=== PATIENT | female | born 1985 ===

== ENCOUNTER 2017-02-26 12:34 | Emergency (ER) | payer OTHER ==
[2017-02-26 12:40] VITALS: RESP 18; TEMP 99.1
[2017-02-26] MEDS ORDERED: DIAZEPAM 5 MG TAB PO STA (13:09)
[2017-02-26] MEDS ORDERED: KETOROLAC 60 MG/2 ML VIAL IM STA (13:09)
--- NOTE | 2017-02-26 13:12 | ED ---
General Adult HPI - General Chief complaint: Back Pain/Injury Stated complaint: Back Pain Time Seen by Provider: 02/26/17 12:59 Source: patient, RN notes reviewed Mode of arrival: ambulatory Limitations: no limitations - History of Present Illness Initial comments: Patient 31-year-old female who presents emergency room today with a chief complaint of increased lower back pain over the last 2 days. She admits that she was sitting a chair 2 days ago when she went to stand up quickly and felt increased pain in the lower back. Does admit that she does have some radiation into both the left and right leg. States worse on the right than the left. Denies any bowel or bladder incontinence retention. Denies any saddle anesthesia. She does admit that the pain is worse with certain movements. She states she has been taking ibuprofen with little relief of the symptoms. Patient denies any other complaints or associated symptoms. Patient denies any recent fever, chills, shortness of breath, chest pain, abdominal pain, nausea or vomiting, dysuria or hematuria, constipation or diarrhea, headaches or visual changes, or any other complaints. - Related Data Home Medications Medication Instructions Recorded Confirmed Albuterol Inhaler [Ventolin Hfa 1 - 2 puff INHALATION RT-Q6H PRN 02/26/17 Inhaler] Ferrous Sulfate [Feosol] 325 mg PO DAILY 02/26/17 02/26/17 Ibuprofen [Motrin] 200 mg PO Q6HR PRN 02/26/17 02/26/17 Previous Rx's Medication Instructions Recorded Cyclobenzaprine [Flexeril] 10 mg PO TID #20 tab 02/26/17 Ibuprofen [Motrin] 800 mg PO Q6HR #30 tab 02/26/17 Allergies Allergy/AdvReac Type Severity Reaction Status Date / Time aspirin Allergy Anaphylaxis Verified 02/26/17 13:32 Fish Containing Products Allergy Anaphylaxis Verified 02/26/17 13:32 [Fish] Penicillins Allergy Anaphylaxis Verified 02/26/17 13:32 shellfish derived [Shellfish] Allergy Anaphylaxis Verified 02/26/17 13:32 shrimp Allergy Anaphylaxis Verified 02/26/17 13:32 soy Allergy Anaphylaxis Verified 02/26/17 13:32 Review of Systems ROS Statement: Those systems with pertinent positive or pertinent negative responses have been documented in the HPI. ROS Other: All systems not noted in ROS Statement are negative. Past Medical History Past Medical History: Asthma History of Any Multi-Drug Resistant Organisms: None Reported Past Surgical History: Tonsillectomy Past Psychological History: Anxiety Past Alcohol Use History: Occasional Past Drug Use History: None Reported General Exam - General Exam Comments Initial Comments: General: The patient is awake and alert, in no distress, and does not appear acutely ill. Eye: Pupils are equal, round and reactive to light, extra-ocular movements are intact. No nystagmus. There is normal conjunctiva bilaterally. No signs of icterus. Ears, nose, mouth and throat: There are moist mucous membranes and no oral lesions. Neck: The neck is supple, there is no tenderness or JVD. Cardiovascular: There is a regular rate and rhythm. No murmur, rub or gallop is appreciated. Respiratory: Lungs are clear to auscultation, respirations are non-labored, breath sounds are equal. No wheezes, stridor, rales, or rhonchi. Gastrointestinal: Soft, non-distended, non-tender abdomen without masses or organomegaly noted. There is no rebound or guarding present. No CVA tenderness. Bowel sounds are unremarkable. Musculoskeletal: Patient has normal appearance of cervical, thoracic, lumbar spine. No step-offs forms appreciated. Patient does have diffuse tenderness beginning at L1 down through S1 of the lower back. Increased paravertebral tenderness both left and right sides. Sensations intact pulses equal bilaterally 2+. Patient shows full range of motion both upper and lower extremities. Sensations intact. Neurological: A&O x 3. CN II-XII intact, There are no obvious motor or sensory deficits. Coordination appears grossly intact. Speech is normal. Skin: Skin is warm and dry and no rashes or lesions are noted. Psychiatric: Cooperative, appropriate mood & affect, normal judgment. Limitations: no limitations Course Vital Signs 02/26/17 12:37 Temperature 99.1 F Pulse Rate 78 Respiratory 18 Rate Blood Pressure 129/70 O2 Sat by Pulse 100 Oximetry Medical Decision Making - Medical Decision Making Patient reexamined at this time shows no signs of distress. Does admit feeling better after Valium and ibuprofen here in the emergency room. Patient's x-ray reviewed and shows no acute abnormality other than some straightening spine with consistency to muscle spasm. Patient will be discharged home and continued on muscle relaxer and anti-inflammatories. Advised to follow-up family doctor over the next 2 days. Advised return here to emergency room if any symptoms increase or worsen or for any other concerns. Patient family wear at bedside state understanding and are in agreement. Disposition Clinical Impression: Acute low back pain Disposition: HOME SELF-CARE Condition: Good Instructions: Acute Low Back Pain (ED) Additional Instructions: Please use medication as discussed. Please follow-up with family doctor in the next 2 days of symptoms have not improved. Please return to emergency room if the symptoms increase or worsen or for any other concerns. Prescriptions: Cyclobenzaprine [Flexeril] 10 mg PO TID #20 tab Ibuprofen [Motrin] 800 mg PO Q6HR #30 tab Referrals: Alec Beatty MD [Primary Care Provider] - 1-2 days Time of Disposition: 14:36
--- NOTE | 2017-02-26 14:11 | XR ---
EXAMINATION TYPE: XR lumbar spine 2 or 3V DATE OF EXAM: 02/26/2017 CLINICAL HISTORY: Low back pain TECHNIQUE: Frontal and lateral images of the lumbar spine are obtained. COMPARISON: None FINDINGS: There are 5 lumbar type vertebral bodies identified. The lumbar spine shows straightening alignment without evidence of acute fracture or dislocation. Vertebral body heights and disk space h eights are within normal limits. No significant spurring is seen. The overlying soft tissue appears unremarkable. IMPRESSION: Straightening of lumbar spine otherwise unremarkable study.
[2017-02-26 14:46] VITALS: BP 103/52; PULSE 81
== END 2017-02-26 14:52 | disposition home or self-care (01) ==
LOC: EC 12:34
DX: M54.5 Low back pain (principal); M79.604 Pain in right leg; M79.605 Pain in left leg; M48.8X6 Other specified spondylopathies, lumbar region; Z79.899 Other long term (current) drug therapy; Z88.0 Allergy status to penicillin; Z88.6 Allergy status to analgesic agent; Z91.013 Allergy to seafood; Z91.018 Allergy to other foods
CPT/HCPCS: 72100; 99283; 96372; J1885

== ENCOUNTER 2017-08-10 16:25 | Emergency (ER) | payer OTHER ==
[2017-08-10 16:59] VITALS: RESP 18
--- NOTE | 2017-08-10 19:50 | ED ---
General Adult HPI - General Chief complaint: Headache Stated complaint: Abd Pain/Headache Time Seen by Provider: 08/10/17 19:34 Source: patient Mode of arrival: ambulatory Limitations: no limitations - History of Present Illness Initial comments: 32-year-old female patient presents to the emergency department today for multiple complaints. States that for the last 2 days she has had generalized body aches, headache, fatigue, and abdominal pain. She states that the pain is located in her upper abdomen and feels like intense pressure type pain. She states that she has had a dry mouth and has been more thirsty than usual. States that she has had also some substernal chest pain intermittently with this. She states that she does have sweats at night. She denies any nausea or vomiting. States that she has had some diarrhea as well over the last 2 days, 5 episodes yesterday and 2 episodes today. She denies any hematochezia or melena. Patient reports that her period finished 2 days ago, states that it lasted for 1-1/2 months. States that she does have a nexplanon implant and does have heavy periods. She denies any fever or chills. States she has had a mild cough and nasal congestion however denies any sore throat or ear pain. Denies any sputum production with her cough. Patient denies any recent rash, shortness breath, chest pain, back pain, numbness, tingling, dizziness, hematuria, dysuria, urinary urgency, urinary frequency, visual changes, or any other complaints. - Related Data Home Medications Medication Instructions Recorded Confirmed Albuterol Inhaler [Ventolin Hfa 1 - 2 puff INHALATION RT-Q6H PRN 02/26/17 Inhaler] Acetaminophen-Codeine 300-30mg 0.5 - 1 tab PO BID PRN 08/10/17 08/10/17 [Tylenol #3] Amantadine HCl [Symmetrel] 100 mg PO BID 08/10/17 08/10/17 Azithromycin [Zithromax Z-pack] See Taper PO DIRECTED 08/10/17 08/10/17 Ibuprofen [Motrin] 800 mg PO TID PRN 08/10/17 08/10/17 Allergies Allergy/AdvReac Type Severity Reaction Status Date / Time aspirin Allergy Anaphylaxis Verified 08/10/17 19:20 Fish Containing Products Allergy Anaphylaxis Verified 08/10/17 19:20 [Fish] iodine Allergy Anaphylaxis Verified 08/10/17 19:20 Penicillins Allergy Anaphylaxis Verified 08/10/17 19:20 shellfish derived [Shellfish] Allergy Anaphylaxis Verified 08/10/17 19:20 shrimp Allergy Anaphylaxis Verified 08/10/17 19:20 soy Allergy Anaphylaxis Verified 08/10/17 19:20 Review of Systems ROS Statement: Those systems with pertinent positive or pertinent negative responses have been documented in the HPI. ROS Other: All systems not noted in ROS Statement are negative. Past Medical History Past Medical History: Asthma History of Any Multi-Drug Resistant Organisms: None Reported Past Surgical History: Adenoidectomy, Tonsillectomy Past Psychological History: Anxiety Smoking Status: Never smoker Past Alcohol Use History: None Reported Past Drug Use History: None Reported General Exam Limitations: no limitations General appearance: alert, in no apparent distress, other (This is a well- developed, obese female patient in no acute distress. Vital signs upon presentation are temperature 99.0F, pulse 89, respirations 18, blood pressure 126/61, pulse ox 98% on room air.) Eye exam: Present: normal appearance, PERRL, EOMI. Absent: scleral icterus, conjunctival injection, nystagmus, periorbital swelling ENT exam: Present: normal exam, normal oropharynx, mucous membranes moist Neck exam: Present: normal inspection. Absent: tenderness, meningismus, lymphadenopathy Respiratory exam: Present: normal lung sounds bilaterally. Absent: respiratory distress, wheezes, rales, rhonchi, stridor Cardiovascular Exam: Present: regular rate, normal rhythm, normal heart sounds. Absent: systolic murmur, diastolic murmur, rubs, gallop, clicks GI/Abdominal exam: Present: soft, tenderness (Midepigastric tenderness, lower abdominal tenderness), normal bowel sounds. Absent: distended, guarding, rebound, rigid Neurological exam: Present: alert, oriented X3, CN II-XII intact Psychiatric exam: Present: normal affect, normal mood Skin exam: Present: warm, dry, intact, normal color. Absent: rash Course Vital Signs 08/10/17 08/10/17 08/10/17 16:56 21:00 23:33 Temperature 99 F 98.6 F 97.7 F Pulse Rate 89 62 78 Respiratory 18 18 18 Rate Blood Pressure 126/61 117/86 144/78 O2 Sat by Pulse 98 100 98 Oximetry EKG Findings - EKG Comments: EKG Findings:: EKG obtained at 2019 shows normal sinus rhythm with a sinus arrhythmia. Ventricular rate is 62, when necessary interval 164, QRS duration 88, QTC 416, QTC 422. No evidence of ST elevation or depression. Medical Decision Making - Medical Decision Making 32-year-old female patient presented to the emergency department today with multiple complaints. Labs reviewed and are unremarkable. Imaging is reviewed and is unremarkable. She'll be discharged home at this time to follow-up with her primary care physician for further evaluation. She is instructed to return here immediately for any new, worsening, or concerning symptoms. She verbalizes understanding and agrees with this plan. - Lab Data Result diagrams: 08/10/17 20:05 08/10/17 20:05 Lab Results 08/10/17 08/10/17 08/10/17 Range/Units 20:05 20:05 20:05 WBC (3.8-10.6) k/uL RBC (3.80-5.40) m/uL Hgb (11.4-16.0) gm/dL Hct (34.0-46.0) % MCV (80.0-100.0) fL MCH (25.0-35.0) pg MCHC (31.0-37.0) g/dL RDW (11.5-15.5) % Plt Count (150-450) k/uL Neutrophils % % Lymphocytes % % Monocytes % % Eosinophils % % Basophils % % Neutrophils # (1.3-7.7) k/uL Lymphocytes # (1.0-4.8) k/uL Monocytes # (0-1.0) k/uL Eosinophils # (0-0.7) k/uL Basophils # (0-0.2) k/uL Hypochromasia Sodium 141 (137-145) mmol/L Potassium 4.2 (3.5-5.1) mmol/L Chloride 105 (98-107) mmol/L Carbon Dioxide 26 (22-30) mmol/L Anion Gap 10 mmol/L BUN 10 (7-17) mg/dL Creatinine 0.60 (0.52-1.04) mg/dL Est GFR (MDRD) Af Amer >60 (>60 ml/min/1.73 sqM) Est GFR (MDRD) Non-Af >60 (>60 ml/min/1.73 sqM) Glucose 95 (74-99) mg/dL Estimated Ave Glu mg/dL 111 Hemoglobin A1c 5.5 (4.0-6.0) % Calcium 9.2 (8.4-10.2) mg/dL Total Bilirubin <0.1 L (0.2-1.3) mg/dL AST 16 (14-36) U/L ALT 29 (9-52) U/L Alkaline Phosphatase 66 (38-126) U/L Total Creatine Kinase 67 (30-135) U/L CK-MB (CK-2) 0.4 (0.0-2.4) ng/mL CK-MB (CK-2) Rel Index 0.6 Troponin I <0.012 (0.000-0.034) ng/mL Total Protein 6.6 (6.3-8.2) g/dL Albumin 3.9 (3.5-5.0) g/dL Amylase 71 (30-110) U/L Lipase 53 (23-300) U/L TSH (0.465-4.680) mIU/L Urine Color Urine Appearance (Clear) Urine pH (5.0-8.0) Ur Specific [place] (1.001-1.035) Urine Protein (Negative) Urine Glucose (UA) (Negative) Urine Ketones (Negative) Urine Blood (Negative) Urine Nitrite (Negative) Urine Bilirubin (Negative) Urine Urobilinogen (<2.0) mg/dL Ur Leukocyte Esterase (Negative) Influenza Type A RNA (Not Detectd) Influenza Type B (PCR) (Not Detectd) 08/10/17 08/10/17 08/10/17 Range/Units 20:05 20:05 20:05 WBC 7.9 (3.8-10.6) k/uL RBC 5.21 (3.80-5.40) m/uL Hgb 13.1 (11.4-16.0) gm/dL Hct 41.9 (34.0-46.0) % MCV 80.5 (80.0-100.0) fL MCH 25.2 (25.0-35.0) pg MCHC 31.3 (31.0-37.0) g/dL RDW 15.1 (11.5-15.5) % Plt Count 266 (150-450) k/uL Neutrophils % 62 % Lymphocytes % 30 % Monocytes % 5 % Eosinophils % 1 % Basophils % 1 % Neutrophils # 4.9 (1.3-7.7) k/uL Lymphocytes # 2.4 (1.0-4.8) k/uL Monocytes # 0.4 (0-1.0) k/uL Eosinophils # 0.1 (0-0.7) k/uL Basophils # 0.0 (0-0.2) k/uL Hypochromasia Slight Sodium (137-145) mmol/L Potassium (3.5-5.1) mmol/L Chloride (98-107) mmol/L Carbon Dioxide (22-30) mmol/L Anion Gap mmol/L BUN (7-17) mg/dL Creatinine (0.52-1.04) mg/dL Est GFR (MDRD) Af Amer (>60 ml/min/1.73 sqM) Est GFR (MDRD) Non-Af (>60 ml/min/1.73 sqM) Glucose (74-99) mg/dL Estimated Ave Glu mg/dL Hemoglobin A1c (4.0-6.0) % Calcium (8.4-10.2) mg/dL Total Bilirubin (0.2-1.3) mg/dL AST (14-36) U/L ALT (9-52) U/L Alkaline Phosphatase (38-126) U/L Total Creatine Kinase (30-135) U/L CK-MB (CK-2) (0.0-2.4) ng/mL CK-MB (CK-2) Rel Index Troponin I (0.000-0.034) ng/mL Total Protein (6.3-8.2) g/dL Albumin (3.5-5.0) g/dL Amylase (30-110) U/L Lipase (23-300) U/L TSH 1.280 (0.465-4.680) mIU/L Urine Color Urine Appearance (Clear) Urine pH (5.0-8.0) Ur Specific [place] (1.001-1.035) Urine Protein (Negative) Urine Glucose (UA) (Negative) Urine Ketones (Negative) Urine Blood (Negative) Urine Nitrite (Negative) Urine Bilirubin (Negative) Urine Urobilinogen (<2.0) mg/dL Ur Leukocyte Esterase (Negative) Influenza Type A RNA Not Detected (Not Detectd) Influenza Type B (PCR) Not Detected (Not Detectd) 08/10/17 Range/Units 21:41 WBC (3.8-10.6) k/uL RBC (3.80-5.40) m/uL Hgb (11.4-16.0) gm/dL Hct (34.0-46.0) % MCV (80.0-100.0) fL MCH (25.0-35.0) pg MCHC (31.0-37.0) g/dL RDW (11.5-15.5) % Plt Count (150-450) k/uL Neutrophils % % Lymphocytes % % Monocytes % % Eosinophils % % Basophils % % Neutrophils # (1.3-7.7) k/uL Lymphocytes # (1.0-4.8) k/uL Monocytes # (0-1.0) k/uL Eosinophils # (0-0.7) k/uL Basophils # (0-0.2) k/uL Hypochromasia Sodium (137-145) mmol/L Potassium (3.5-5.1) mmol/L Chloride (98-107) mmol/L Carbon Dioxide (22-30) mmol/L Anion Gap mmol/L BUN (7-17) mg/dL Creatinine (0.52-1.04) mg/dL Est GFR (MDRD) Af Amer (>60 ml/min/1.73 sqM) Est GFR (MDRD) Non-Af (>60 ml/min/1.73 sqM) Glucose (74-99) mg/dL Estimated Ave Glu mg/dL Hemoglobin A1c (4.0-6.0) % Calcium (8.4-10.2) mg/dL Total Bilirubin (0.2-1.3) mg/dL AST (14-36) U/L ALT (9-52) U/L Alkaline Phosphatase (38-126) U/L Total Creatine Kinase (30-135) U/L CK-MB (CK-2) (0.0-2.4) ng/mL CK-MB (CK-2) Rel Index Troponin I (0.000-0.034) ng/mL Total Protein (6.3-8.2) g/dL Albumin (3.5-5.0) g/dL Amylase (30-110) U/L Lipase (23-300) U/L TSH (0.465-4.680) mIU/L Urine Color Yellow Urine Appearance Clear (Clear) Urine pH 6.5 (5.0-8.0) Ur Specific [place] 1.015 (1.001-1.035) Urine Protein Negative (Negative) Urine Glucose (UA) Negative (Negative) Urine Ketones Negative (Negative) Urine Blood Negative (Negative) Urine Nitrite Negative (Negative) Urine Bilirubin Negative (Negative) Urine Urobilinogen <2.0 (<2.0) mg/dL Ur Leukocyte Esterase Negative (Negative) Influenza Type A RNA (Not Detectd) Influenza Type B (PCR) (Not Detectd) - Radiology Data Radiology results: report reviewed, image reviewed Two-view x-ray of the chest is obtained and shows the lungs are clear, pleural spaces are negative. Cardiac silhouette is not enlarged. The mediastinal pleural silhouettes are unremarkable. Skeletal structures are intact without focal findings. Soft tissues are unremarkable. Impression by Dr. Mikey Santana shows no acute process. Two-view x-ray of the abdomen shows no abnormal gas collections, bowel gas pattern is unremarkable except for fernandes colonic stool. The visualized skeletal structures and soft tissues are unremarkable. The right lung bases and pleural spaces and cardiac silhouette are unremarkable. Impression by Dr. Mikey Santana shows negative examination. Disposition Clinical Impression: Abdominal pain, Body aches Disposition: HOME SELF-CARE Condition: Good Instructions: Abdominal Pain (ED) Additional Instructions: Increase fluids. Follow-up with her primary care physician for recheck in 1-2 days. Follow-up with your emergency services dispatcher for further evaluation. Return here immediately for any new, worsening, or concerning symptoms. Referrals: Alec Beatty MD [Primary Care Provider] - 1-2 days Time of Disposition: 23:17
[2017-08-10] MEDS ORDERED: SODIUM CHLORIDE 0.9% 1,000 ML IV ONE (19:51)
[2017-08-10] MEDS ORDERED: KETOROLAC 30 MG/ML 1 ML VIAL IVP STA (19:52)
[2017-08-10 20:31] LABS: Basophils % (A) 1 %; Eosinophils # (A) 0.1 k/uL (0-0.7); Eosinophils % (A) 1 %; HCT 41.9 % (34.0-46.0); HGB 13.1 gm/dL (11.4-16.0); Hypochromasia Slight; Lymphocytes # (A) 2.4 k/uL (1.0-4.8); Lymphocytes % (A) 30 %; MCH 25.2 pg (25.0-35.0); MCHC 31.3 g/dL (31.0-37.0); MCV 80.5 fL (80.0-100.0); Mean Platelet Volume 8.2; Monocytes # (A) 0.4 k/uL (0-1.0); Monocytes % (A) 5 %; Neutrophils # (A) 4.9 k/uL (1.3-7.7); Neutrophils % (A) 62 %; Platelet Count 266 k/uL (150-450); RBC 5.21 m/uL (3.80-5.40); RDW 15.1 % (11.5-15.5); WBC 7.9 k/uL (3.8-10.6)
[2017-08-10 20:41] LABS: ALT 29 U/L (9-52); AST 16 U/L (14-36); Albumin 3.9 g/dL (3.5-5.0); Alkaline Phosphatase 66 U/L (38-126); Amylase 71 U/L (30-110); Anion Gap 10 mmol/L; Blood Urea Nitrogen 10 mg/dL (7-17); Calcium 9.2 mg/dL (8.4-10.2); Carbon Dioxide 26 mmol/L (22-30); Chloride 105 mmol/L (98-107); Glucose 95 mg/dL (74-99); Lipase 53 U/L (23-300); Potassium 4.2 mmol/L (3.5-5.1); Sodium 141 mmol/L (137-145); Total Bilirubin <0.1 mg/dL (0.2-1.3); Total Protein 6.6 g/dL (6.3-8.2)
[2017-08-10 20:49] LABS: Creatine Kinase 67 U/L (30-135)
[2017-08-10 21:02] LABS: Creatine Kinase MB 0.4 ng/mL (0.0-2.4); Troponin I <0.012 ng/mL (0.000-0.034)
--- NOTE | 2017-08-10 21:17 | XR ---
EXAMINATION TYPE: XR KUB DATE OF EXAM: 08/10/2017 COMPARISON: NONE HISTORY: Pain and weakness TECHNIQUE: 2 upright views FINDINGS: No abnormal gas collections, the bowel gas pattern is unremarkable except for pancolonic st ool. The visualized skeletal structures and soft tissues are unremarkable. There is right lung bases and pleural spaces and cardiac silhouette are unremarkable. IMPRESSION: Negative examination.
--- NOTE | 2017-08-10 21:18 | XR ---
EXAMINATION: XR chest 2V DATE AND TIME: 08/10/2017 8:23 PM ORDERING PROVIDER: Elsa Herrera CLINICAL INDICATION: Pain TECHNIQUE: PA and lateral COMPARISON: None. DESCRIPTION: The lungs are clear. The pleural spaces are negative. The cardiac silhouette is not enlarged. The mediastinal and pleural silhouettes are unremarkable. The skeletal structures are intact without focal findings. The soft tissues are unremarkable. IMPRESSION: NO ACUTE PROCESS.
[2017-08-10 22:02] LABS: Appearance,Urine Clear (Clear); Bilirubin,Urine Negative (Negative); Blood,Urine Negative (Negative); Color,Urine Yellow; Glucose,Urine (UA) Negative (Negative); Ketones,Urine Negative (Negative); Leukocyte Esterase,Urine Negative (Negative); Nitrite,Urine Negative (Negative); PH, Urine 6.5 (5.0-8.0); Protein,Urine Negative (Negative); Specific Gravity,Urine 1.015 (1.001-1.035); Urobilinogen,Urine <2.0 mg/dL (<2.0)
[2017-08-10 23:34] VITALS: BP 144/78; PULSE 78; TEMP 97.7
[2017-08-11 04:13] LABS: Hemoglobin A1C 5.5 % (4.0-6.0)
== END 2017-08-10 23:34 | disposition home or self-care (01) ==
LOC: EC 16:25
DX: R10.10 Upper abdominal pain, unspecified (principal); R51 Headache; R53.83 Other fatigue; R07.2 Precordial pain; R05 Cough; R09.81 Nasal congestion; J45.909 Unspecified asthma, uncomplicated; Z79.899 Other long term (current) drug therapy; Z88.6 Allergy status to analgesic agent; Z91.013 Allergy to seafood; Z91.048 Other nonmedicinal substance allergy status; Z88.0 Allergy status to penicillin; Z91.018 Allergy to other foods
CPT/HCPCS: 36415; 93005; 80053; 82150; 82550; 82553; 83690; 84443; 84484; 85025; 81003; 87502; 83036; 71046; 74018; 99284; 96374; 96361; J1885

== ENCOUNTER → 2017-09-10 | Outpatient (CLI) | payer OTHER ==
--- NOTE | 2017-09-10 12:15 | MM ---
Reason for exam: screening (asymptomatic). Baseline mammogram. History: Family history of breast cancer in sister at age 37 and breast cancer in 3 other sisters. Taking progesterone for 2 years. Physical Findings: Nurse Summary: 1 x 1 cm nodule in the left breast at 1 o'clock (nurse ts). MG 3D Screening Mammo W/Cad Bilateral CC and MLO view(s) were taken. The breast tissue is heterogeneously dense. This may lower the sensitivity of mammography. There is no discrete abnormality. Palpable marker left upper outer quadrant. These results were verbally communicated with the patient and result sheet given to the patient on 09/10/17. ASSESSMENT: Incomplete: need additional imaging evaluation, BI-RAD 0 RECOMMENDATION: Ultrasound of the left breast. (targeted to palpable)
== END | disposition home or self-care (01) ==
LOC: RADMAMWWP 09:30
PROVIDERS: ATTEND Family Medicine
DX: Z12.31 Encounter for screening mammogram for malignant neoplasm of breast (principal); Z80.3 Family history of malignant neoplasm of breast
CPT/HCPCS: 77063; 77067

== ENCOUNTER → 2017-09-11 | Outpatient (CLI) | payer OTHER ==
--- NOTE | 2017-09-10 12:17 | USB ---
Reason for exam: additional evaluation requested from abnormal screening. History: Family history of breast cancer in sister at age 37 and breast cancer in 3 other sisters. Taking progesterone for 2 years. Physical Findings: Breast exam preformed at baseline screening. US Breast Workup Limited LT Left breast ultrasound demonstrates a 8mm lymph node at the axilla tail, appears normal. No solid or cystic lesion at the 1 o'clock palpable site. These results were verbally communicated with the patient and result sheet given to the patient on 09/10/17. ASSESSMENT: Negative, BI-RAD 1 RECOMMENDATION: 1. Routine screening mammogram of both breasts in 1 year. 2. Manage on a clinical basis with regard to any suspicious palpable abnormality. 3. Follow up BRCA testing results. 4. Clinical management of white nipple discharge which is regarded as benign. Suspicious discharge that would warrant further evaluation is clear or bloody spontaneous discharge localized to a single pore on the nipple. MTDD
--- NOTE | 2017-09-11 10:28 | US ---
EXAMINATION TYPE: US pelvis complete transvag DATE OF EXAM: 09/11/2017 COMPARISON: NONE CLINICAL HISTORY: Dysmenorrhea N94.6. Heavy painful irregular cycles x couple years, 2, para 2, patient on control TECHNIQUE: . Transabdominal sonographic images of the pelvis were acquired. Transvaginal sonographi c images were medically necessary to better assess the following anatomy: ovaries Date of LMP: 09/07/2017 EXAM MEASUREMENTS: Uterus: 9.6 x 4.5 x 5.5 cm Endometrial Stripe: 0.5 cm Right Ovary: 5.0 x 3.1 x 3.5 cm Left Ovary: 3.1 x 2.0 x 1.8 cm 1. Uterus: anteverted, heterogeneous with hypoechoic vascular lesion measuring 1.5 x 1.4 x 1.6cm, sm all nabothian cyst seen 2. Endometrium: wnl 3. Right Ovary: 3.0 x 2.5 x 3.0cm cystic lesion with internal echoes 4. Left Ovary: wnl 5. Bilateral Adnexa: wnl 6. Posterior cul-de-sac: wnl IMPRESSION: 1. Probable intramural single uterine leiomyoma measuring up to 1.6 cm. 2. 3.0 cm right ovarian cystic lesion most characteristic of a hemorrhagic cyst. 3. No evidence of endometrial thickening.
== END | disposition home or self-care (01) ==
LOC: RADUSWWP 09:20
PROVIDERS: ATTEND Family Medicine
DX: N83.201 Unspecified ovarian cyst, right side (principal); Z88.0 Allergy status to penicillin; Z88.6 Allergy status to analgesic agent; Z91.048 Other nonmedicinal substance allergy status; Z91.09 Other allergy status, other than to drugs and biological substances; R92.8 Other abnormal and inconclusive findings on diagnostic imaging of breast
CPT/HCPCS: 76830; 76856

== ENCOUNTER → 2017-10-02 | Outpatient (CLI) | payer OTHER ==
--- NOTE | 2017-10-02 10:08 | CT ---
EXAMINATION TYPE: CT abdomen pelvis w con DATE OF EXAM: 10/02/2017 HISTORY: Lower abd pain CT DLP: 1587mGycm Automated Exposure Control for Dose Reduction was Utilized. CONTRAST: CT scan of the abdomen and pelvis is performed with IV Contrast, patient injected with 100 mL of Omni paque 300. COMPARISON: 09/11/2017 FINDINGS: LUNG BASES: Scattered areas of pleural-parenchymal scarring are noted. No focal consolidation. LIVER/GB: Liver enhances homogeneously without ductal dilatation or focal identifiable mass. No carmelo lithiasis. PANCREAS: No significant abnormality is seen. No ductal dilatation. SPLEEN: No significant abnormality is seen. No splenomegaly. ADRENALS: No thickening or nodularity. KIDNEYS: Kidneys enhance and excrete symmetrically without focal lesion. BOWEL: Bowel is nondilated without evidence of obstruction or acute diverticulitis. Moderate amount r etained stool is seen throughout the colon. Appendix is retrocecal and within normal limits. UTERUS/ADNEXA: Numerous follicles are present within the ovaries. The previously seen right ovarian c ystic lesion measuring 3 mm is not clearly defined and there is at least a dominant 1.3 cm follicle o n the right. The previously identified 1.6 cm uterine leiomyoma is also not well delineated on CT. LYMPH NODES: No greater than 1cm abdominal or pelvic lymph nodes are appreciated. OSSEOUS STRUCTURES: Small sclerotic focus is seen within the L2 vertebral body, likely representing a bone island. Osseous structures appear intact. OTHER: There is a small fat filled umbilical hernia with a 1.2 cm neck superimposed upon diastases re cti. IMPRESSION: 1. The previously seen right ovarian cystic structure on the prior ultrasound that measured 3 mm at t he time of examination is no longer evident and has likely resolved in the interim with a dominant 1. 3 cm follicle. Follicular changes are seen of both ovaries. The known 1.6 cm uterine leiomyoma is als o not well delineated on CT. 2. Small fat filled umbilical hernia superimposed on diastases recti.
== END | disposition home or self-care (01) ==
LOC: RADCTMAIN 08:38
PROVIDERS: ATTEND Family Medicine
DX: K42.9 Umbilical hernia without obstruction or gangrene (principal); Z88.0 Allergy status to penicillin; Z88.6 Allergy status to analgesic agent; Z91.048 Other nonmedicinal substance allergy status
CPT/HCPCS: 74177; Q9967

== ENCOUNTER 2017-10-30 09:57 | Day surgery (SDC) | payer OTHER ==
[2017-10-28 11:23] VITALS: BMI 37.3
[~2017-10-30 09:57] MED LIST: LACTATED RINGERS 1,000 ML IV SCH
[2017-10-30 10:29] VITALS: TEMP 98
[2017-10-30] MEDS ORDERED: LIDOCAINE 1% 20 ML VIAL (10MG/ML) FOR IV START INTRADERMA ONE (10:42)
[2017-10-30] MEDS ORDERED: PROPOFOL 10 MG/ML 20 ML VIAL IV ONE (12:37)
[2017-10-30] MEDS ORDERED: MIDAZOLAM 2 MG/2 ML VIAL ONE (12:37)
[2017-10-30] MEDS ORDERED: fentaNYL (PF) 50 MCG/ML 2 ML AMP ONE (12:37)
--- NOTE | 2017-10-30 12:41 | P.GSHP ---
History of Present Illness H&P Date: 10/30/17 Chief Complaint: Change in bowel habits Patient with complaints of constipation. She has a very strong family history with 4 brothers having colon cancer and multiple uncles having colon cancer as well. Denies rectal bleeding. No previous colonoscopy.. Past Medical History Past Medical History: Asthma Additional Past Medical History / Comment(s): HAS BEEN HAVING ALOT OF ABD. PAIN History of Any Multi-Drug Resistant Organisms: None Reported Past Surgical History: Adenoidectomy, Tonsillectomy Past Anesthesia/Blood Transfusion Reactions: No Reported Reaction Smoking Status: Never smoker - Past Family History Brother(s) Family Medical History: Cancer Medications and Allergies Home Medications Medication Instructions Recorded Confirmed Type Albuterol Inhaler [Ventolin Hfa 1 - 2 puff INHALATION RT-Q6H PRN 02/26/17 History Inhaler] Allergies Allergy/AdvReac Type Severity Reaction Status Date / Time aspirin Allergy Anaphylaxis Verified 10/30/17 10:30 Fish Containing Products Allergy Anaphylaxis Verified 10/30/17 10:30 [Fish] iodine Allergy Anaphylaxis Verified 10/30/17 10:30 Penicillins Allergy Anaphylaxis Verified 10/30/17 10:30 shellfish derived [Shellfish] Allergy Anaphylaxis Verified 10/30/17 10:30 shrimp Allergy Anaphylaxis Verified 10/30/17 10:30 soy Allergy Anaphylaxis Verified 10/30/17 10:30 Surgical - Exam Vital Signs Temp Pulse Resp BP Pulse Ox 98.0 F 88 18 114/67 98 10/30/17 10:28 10/30/17 10:28 10/30/17 10:28 10/30/17 10:28 10/30/17 10:28 Physical exam: General: Well-developed, well-nourished HEENT: Normocephalic, sclerae nonicteric Abdomen: Nontender, nondistended Extremities: No edema Neuro: Alert and oriented Assessment and Plan (1) Change in bowel habits Narrative/Plan: Will proceed with colonoscopy at this time Current Visit: Yes Status: Acute Code(s): R19.4 - CHANGE IN BOWEL HABIT SNOMED Code(s): 382670700
--- NOTE | 2017-10-30 12:56 | P.PCN ---
Date of Procedure: 10/30/17 Procedure(s) Performed: PREOPERATIVE DIAGNOSIS: Change in bowel habits, family history POSTOPERATIVE DIAGNOSIS: Normal exam PROCEDURE: Colonoscopy ANESTHESIA: MAC SURGEON: Stu Chapman M.D. SPECIMENS: None ENDOSCOPIC PROCEDURE: The patient was placed on the endoscopy table in the left decubitus position. The Olympus colonoscope was inserted into the anus and passed under direct visualization to the base of the cecum. The appendiceal orifice was visualized. From that point the scope was slowly withdrawn inspecting all surfaces carefully. There were no neoplastic inflammatory or polypoid lesions throughout the cecum, ascending, transverse, descending, sigmoid and rectum. There was no diverticulosis noted. Digital rectal examination was normal. The patient was taken to the recovery room in stable condition per anesthesia guidelines. RECOMMENDATIONS: Increase fiber follow-up colonoscopy in 5 years.
[2017-10-30 13:21] VITALS: PULSE 72
[2017-10-30 13:31] VITALS: BP 106/48; RESP 18
== END 2017-10-30 13:46 | disposition home or self-care (01) ==
LOC: ORWHC2ENDO 09:57
PROVIDERS: ATTEND Surgery
DX: J45.909 Unspecified asthma, uncomplicated (principal); R19.4 Change in bowel habit; R10.9 Unspecified abdominal pain; K59.00 Constipation, unspecified; Z80.0 Family history of malignant neoplasm of digestive organs; Z88.6 Allergy status to analgesic agent; Z88.0 Allergy status to penicillin; Z91.013 Allergy to seafood; Z91.018 Allergy to other foods; Z91.048 Other nonmedicinal substance allergy status
CPT/HCPCS: 81025; 45378; J2250; J3010; J2704

== ENCOUNTER → 2018-02-19 | Outpatient (CLI) | payer OTHER ==
[2018-02-19 11:00] LABS: Basophils % (A) 0 %; Eosinophils # (A) 0.1 k/uL (0-0.7); Eosinophils % (A) 1 %; HCT 42.2 % (34.0-46.0); Lymphocytes # (A) 1.7 k/uL (1.0-4.8); Lymphocytes % (A) 22 %; MCHC 30.9 g/dL (31.0-37.0); MCV 77.7 fL (80.0-100.0); Mean Platelet Volume 7.9; Monocytes # (A) 0.4 k/uL (0-1.0); Monocytes % (A) 5 %; Neutrophils # (A) 5.5 k/uL (1.3-7.7); Neutrophils % (A) 70 %; Platelet Count 241 k/uL (150-450); RBC 5.43 m/uL (3.80-5.40); RDW 14.7 % (11.5-15.5); WBC 7.9 k/uL (3.8-10.6)
== END | disposition home or self-care (01) ==
LOC: LABPAT 10:48
PROVIDERS: ATTEND Obstetrics & Gynecology Obstetrics
DX: Z01.812 Encounter for preprocedural laboratory examination (principal)
CPT/HCPCS: 36415; 85025

== ENCOUNTER → 2018-03-02 | Day surgery (SDC) | payer OTHER ==
[2018-02-22 13:14] VITALS: BMI 40.3
--- NOTE | 2018-03-01 13:45 | HP ---
HISTORY AND PHYSICAL HISTORY OF PRESENT ILLNESS: This is a very pleasant 32-year-old female, 2, para 2, that presents for tubal ligation, family planning consult. The patient states her menses are regular every 28 days, lasting 4 to 5 days. She is not using any current control. She is interested in permanent sterilization. She tried a Nexplanon in the past and was removed secondary to side effects that she felt were worsened with the Nexplanon. She states her periods have improved since her Nexplanon was removed and, in addition, dyspareunia is improving. PAST MEDICAL HISTORY: Significant for asthma. PAST SURGICAL HISTORY: Colonoscopy, tonsillectomy. MEDICATION: Albuterol MDI as needed. ALLERGIES: IODINE, PENICILLIN, SHELLFISH, SULFA. PAST FAMILY MEDICAL HISTORY: Significant for breast cancer in a sister at age 37 at diagnosis. OB HISTORY: She is a 2, para 2 with 2 prior vaginal deliveries. GENERAL DOC HISTORY: Menses are regular every 28 days, lasting 4 to 5 days with moderate flow. SOCIAL HISTORY: She is a nonsmoker and admits to occasional alcohol use. REVIEW OF SYSTEMS: She denies nausea, vomiting, diarrhea, constipation, menorrhagia, irregular menses, dysmenorrhea. PHYSICAL EXAM: GENERAL: She is a well-nourished, well-developed, alert female in no acute distress. HEART: Regular rate and rhythm. LUNGS: Clear to auscultation bilaterally. GASTROINTESTINAL: Her abdomen is soft, nontender to palpation, with normal bowel sounds being noted. PELVIC: Her uterus is normal size and mobile with no adnexal masses being palpated. ASSESSMENT: Family planning, she desires permanent sterilization. PLAN: Laparoscopic tubal ligation with Falope rings. The patient is instructed on the risks of surgery including, but not limited to infection, bleeding, damage to bladder, bowel, ureteric injury. Patient states understanding of these risks. She also understands there is a failure risk with tubal, 2 to 3 per 1000 will fail and if she misses a period this could be an ectopic and a medical emergency, and therefore she is urged to seek treatment if that does happen. The patient states understanding of all these risks and informed consent is obtained. Patient wishes to proceed with scheduling, which was scheduled with Saeid. WAI / BREONNAN: [id number] /
[~2018-03-02] MED LIST changes: +ACETAMINOPHEN IV (For NPO) 1,000 MG in EMPTY BAG 1 BAG IVPB NR; +DEXAMETHASONE SOD PHOSPHATE 10 MG/ML 1 ML VIAL IV ONE; +GLYCOPYRROLATE 0.2 MG/ML 2 ML VIAL ONE; +KETOROLAC 30 MG/ML 1 ML VIAL IVP ONE; +LIDOCAINE 1% 20 ML VIAL (10MG/ML) FOR IV START INTRADERMA PRN; +LIDOCAINE 1% INJ 10MG/ML (20 ML MDV) ONE; +LIDOCAINE 1% INJ 10MG/ML (20 ML MDV) SQ ONE; +LIDOCAINE 2% GEL 30 ML TUBE TOPICAL ONE; +MIDAZOLAM 2 MG/2 ML VIAL IV PRN; +MIDAZOLAM 2 MG/2 ML VIAL ONE; +NEOSTIGMINE 1 MG/ML 10 ML VIAL ONE; +ONDANSETRON 4 MG/2 ML VIAL IVP ONE; +PROPOFOL 10 MG/ML 20 ML VIAL IV ONE; +Pre Op ABX Message 1 EACH MISC MISCELLANE ONE; +ROCURONIUM BROMIDE 10 MG/ML 10 ML VIAL IV ONE; +SCOPOLAMINE 1.5MG/72HR PATCH TRANSDERM ONE; +SUCCINYLCHOLINE CHLORIDE 100 MG/5 ML SYR IV ONE; +fentaNYL (PF) 50 MCG/ML 2 ML AMP ONE
--- NOTE | 2018-03-02 09:05 | P.OP ---
Date of Procedure: 03/02/18 Preoperative Diagnosis: Family planning, family status complete Postoperative Diagnosis: Same Procedure(s) Performed: Laparoscopic tubal ligation with Falope-Rings Anesthesia: VALORIE Surgeon: Jeanette Hancock Estimated Blood Loss (ml): 5 IV fluids (ml): 400 Urine output (ml): 50 Pathology: none sent Condition: stable Disposition: PACU Indications for Procedure: Family status complete, patient desires permanent sterilization Operative Findings: Normal pelvic anatomy Description of Procedure: Patient was seen in the preoperative area and informed consent was obtained. She once again states that she wishes permanent sterilization. Next Patient was taken to the operating room where general anesthesia was obtained without difficulty by the anesthesia department. She was then prepped and draped in the normal sterile fashion in the dorsal lithotomy position. A red rubber catheter was then used to drain the bladder of clear yellow urine. The cervix is visualized via speculum as anterior lip of the cervix was grasped with a single-tooth tenaculum and acorn uterine manipulator was advanced into the cervix as a means to manipulate the uterus throughout the procedure. Attention was then turned to the patient's abdomen where in the umbilical fold a small skin incision was made through this incision the Veress needle was placed once the Veress needle was deemed to be in the proper position with a drop of CO2 pressure with insufflation of CO2 gas CO2 insufflation was allowed to occur occur. Approximately 3 L of gas were used to obtain pneumoperitoneum. At this time the felt 5 mm trocar and sleeve is placed through the skin incision and toward the pneumoperitoneum under direct visualization. The above noted findings were then visualized. At this time the additional port sites was placed in the right lower quadrant to's finger breaths from the ASIS. This is an 8 mm port placed under direct visualization. The fallopian applicator had been opened and the left fallopian tube was grasped and the Falope ring was placed per handle turner's instructions. This was then repeated on the opposite side. Hemostasis was appreciated both tubes were noted to be occluded. At this time all instruments removed from the patient's abdomen. The skin incisions were then closed with 4-0 Vicryl in a subcuticular fashion. Steri- Strips and sterile dressings were applied as needed. This was then turned the patient's vaginal vault the CO2 tenaculum was taken off of the anterior lip of the cervix and acorn uterine manipulator was removed in addition. Hemostasis was appreciated. All counts were correct 2 patient tolerated procedure well and was taken the recovery room awake in stable condition
[2018-03-02 09:08] VITALS: TEMP 97
[2018-03-02 09:15] VITALS: RESP 18
[2018-03-02] MEDS: fentaNYL (PF) 50 MCG/ML 2 ML AMP IV PRN ×2 (09:49→10:14)
[2018-03-02 11:33] VITALS: BP 118/75; PULSE 61
== END | disposition home or self-care (01) ==
LOC: OR 06:41
PROVIDERS: ATTEND Obstetrics & Gynecology Obstetrics
DX: Z30.2 Encounter for sterilization (principal); J45.909 Unspecified asthma, uncomplicated; Z91.048 Other nonmedicinal substance allergy status; Z88.0 Allergy status to penicillin; Z91.013 Allergy to seafood; Z88.2 Allergy status to sulfonamides; Z88.6 Allergy status to analgesic agent; Z91.018 Allergy to other foods; Z80.3 Family history of malignant neoplasm of breast
CPT/HCPCS: 58671; 81025; J2250; J1100; J2710; J2405; J2001; J3010; J1885; J0131; J0330; J2704

== ENCOUNTER → 2018-12-30 | Outpatient (CLI) | payer BC ==
--- NOTE | 2018-12-30 11:17 | P.HPBAR ---
Bariatric H&P - History & Physicial H&P Date: 12/30/18 History & Physicial: Visit/CC: Patient initial contact: Initial weight: Initial weight in pounds: Height: Initial BMI: Last weight: Current weight: Current weight in pounds: Current BMI: Echo body weight (based on NIH guidelines): Excess body weight loss: The patient is a 33 year-old F who presents for Bariatric Assessment. HPI: She is looking into the band. She has been trying to loose weight was 300 pounds then went down to 231 pounds. She went from [place] to [facility] then to [place]. She has family history of multiple sclerosis and lupus. She has started medical weight. She started November 2018. Highest weight is 145 pounds before kids then to 297pounds. She reports feeling sad. She still has her gallbladder. No back pain. She has hip pain and knee pain, right side. She has swelling of the left ankle. ASSESSMENT: 1. Morbid obesity PLAN: 1. [place] calculator 2. She is still looking into option Past Medical History Past Medical History: Asthma Additional Past Medical History / Comment(s): HAS BEEN HAVING ALOT OF ABD. PAIN History of Any Multi-Drug Resistant Organisms: None Reported Past Surgical History: Adenoidectomy, Tonsillectomy Past Anesthesia/Blood Transfusion Reactions: No Reported Reaction Past Alcohol Use History: None Reported - Past Family History Brother(s) Family Medical History: Cancer Bariatric Checklist Checklist: Plan: Checklist: EGD: 1. Hiatal hernia: 2. H. Pylori: HgbA1c: Vitamin D: Smoking: Never smoker Primary care physician referral: Psychiatry clearance: Cardiology clearance: Sleep study: Diet journal: VTE risk score: VTE risk level: Rehab needs at discharge:
[2018-12-30 12:38] LABS: HCT 40.3 % (34.0-46.0); HGB 12.9 gm/dL (11.4-16.0); MCH 24.5 pg (25.0-35.0); MCHC 31.9 g/dL (31.0-37.0); MCV 76.8 fL (80.0-100.0); Mean Platelet Volume 6.9; Microcytosis Slight; Platelet Count 253 k/uL (150-450); RBC 5.25 m/uL (3.80-5.40); RDW 15.2 % (11.5-15.5); WBC 9.5 k/uL (3.8-10.6)
[2018-12-30 12:43] LABS: Prothrombin Time 10.3 sec (9.0-12.0)
[2018-12-30 12:44] LABS: Partial Thromboplastin Time 31.3 sec (22.0-30.0)
[2018-12-30 14:32] VITALS: BP 119/83; PULSE 79; TEMP 98.7; BMI 42.7
[2018-12-30 18:58] LABS: African American GFR (CKD) 137.8 (60.0-200.0); Albumin 3.9 g/dL (3.80-4.90); Albumin/Globulin Ratio 1.44 (1.60-3.17); Anion Gap 6.4 mmol/L (4.00-12.00); Calcium 9.3 mg/dL (8.7-10.3); Carbon Dioxide 27.6 mmol/L (21.6-31.8); Globulin 2.7 g/dL (1.6-3.3); LDL Cholesterol,Calculated 181.4 mg/dL (0.0-131.0); Magnesium 1.8 mg/dL (1.5-2.4); Potassium 4.2 mmol/L (3.5-5.5); Total Bilirubin 0.3 mg/dL (0.3-1.2); Total Protein 6.6 g/dL (6.2-8.2); VLDL Calculation 78.6 mg/dL (5.00-40.00)
[2018-12-30 19:04] LABS: Iron Saturation 20.67 (12.00-45.00)
[2018-12-30 19:25] LABS: Vitamin D 25 Hydroxy 13.3 ng/mL (30.0-100.0)
[2018-12-30 21:10] LABS: Parathyroid Hormone Intact 32.9 pg/mL (14.0-72.0)
[2018-12-30 21:19] LABS: Hemoglobin A1C 5.8 % (4.0-6.0)
[2018-12-31 14:10] LABS: Zinc, Serum 60 ug/dL (60-130)
[2019-01-01 08:33] LABS: Vit B1(Thiamine) 62 ug/L (38-122)
[2019-01-03 06:36] LABS: Vitamin A 28 ug/dL (38-106)
[2019-01-04 19:08] LABS: Selenium 102 mcg/L (63-160)
== END ==
LOC: BARWHC3 10:16
PROVIDERS: ATTEND Surgery Plastic and Reconstructive Surgery
DX: E66.01 Morbid (severe) obesity due to excess calories (principal); Z01.818 Encounter for other preprocedural examination; E21.1 Secondary hyperparathyroidism, not elsewhere classified; E89.1 Postprocedural hypoinsulinemia; D50.9 Iron deficiency anemia, unspecified; K90.9 Intestinal malabsorption, unspecified; E55.9 Vitamin D deficiency, unspecified; K74.1 Hepatic sclerosis; N19 Unspecified kidney failure; K50.90 Crohn's disease, unspecified, without complications; Z68.41 Body mass index [BMI] 40.0-44.9, adult
CPT/HCPCS: 80053; 80061; 82306; 82525; 82607; 82728; 82746; 83036; 83540; 83550; 83735; 83970; 84100; 84134; 84255; 84425; 84443; 84590; 84630; 85027; 85610; 85730; 93005; 99211

== ENCOUNTER 2019-04-04 13:03 | Day surgery (SDC) | payer BC ==
[2019-04-01 09:57] VITALS: BMI 40.6
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
[2019-04-04] MEDS ORDERED: LACTATED RINGERS 1,000 ML IV SCH (13:08)
[2019-04-04] MEDS ORDERED: LIDOCAINE 1% 20 ML VIAL (10MG/ML) FOR IV START INTRADERMA PRN (13:08)
[2019-04-04 13:32] VITALS: TEMP 97.2
[2019-04-04] MEDS ORDERED: PROPOFOL 10 MG/ML 20 ML VIAL IV ONE (14:29)
[2019-04-04] MEDS ORDERED: LIDOCAINE 1% INJ 10MG/ML (20 ML MDV) ONE (14:29)
--- NOTE | 2019-04-04 14:53 | P.PCN ---
Date of Procedure: 04/04/19 Description of Procedure: PREOPERATIVE DIAGNOSIS: Gastroesophageal reflux disease. Morbid obesity. POSTOPERATIVE DIAGNOSIS: Morbid obesity. Gastritis. Gastroesophageal reflux disease. OPERATION: Esophagogastroduodenoscopy with biopsies along antrum. SURGEON: Sheryl Freitas MD ANESTHESIA: MAC. INDICATIONS: The patient is a 34-year-old female who presents with a history of reflux disease. Benefits and risks of the procedure were described. Informed consent was obtained. DESCRIPTION: The patient was brought into the endoscopy suite and laid in the left lateral decubitus position. An Olympus gastroscope was passed along the posterior oropharynx down to the distal esophagus where the squamocolumnar junction was encountered at 40 cm from the incisors. The stomach was entered and no bile reflux was found. Additional findings are listed below. Biopsies with cold forceps were obtained of the antrum. The first through third portion of the duodenum was examined and unremarkable. Retroflexion of the scope confirmed Hill grade 1 lower esophageal valve. The squamocolumnar junction demonstrated no LA grade A erosive esophagitis. The stomach was desufflated. The patient tolerated the procedure well. FINDINGS: Squamocolumnar junction 40 cm from the incisors. Diaphragmatic hiatus at 40 cm. Hill grade 1 lower esophageal valve. No LA grade A erosive esophagitis. No active duodenitis. Minimal gastritis RECOMMENDATIONS: Upper endoscopy as needed. Plan - Discharge Summary Discharge Rx Participant: No New Discharge Prescriptions: No Action Albuterol Inhaler [Ventolin Hfa Inhaler] 1 - 2 puff INHALATION RT-Q6H PRN PRN Reason: Shortness Of Breath Acetaminophen Tab [Tylenol Tab] 325 mg PO DAILY EPINEPHrine [Epipen 2-Eliceo] 0.3 mg IM ONCE PRN PRN Reason: Anaphylaxis Vitamin A 8,000 unit PO DAILY Ascorbic Acid [Vitamin C] 1,000 mg PO DAILY Vitamin E 1,000 unit PO DAILY Atorvastatin [Lipitor] 20 mg PO DAILY Discharge Medication List Albuterol Inhaler [Ventolin Hfa Inhaler] 1 - 2 puff INHALATION RT-Q6H PRN 02/26/17 [History] Acetaminophen Tab [Tylenol Tab] 325 mg PO DAILY 02/22/18 [History] EPINEPHrine [Epipen 2-Eliceo] 0.3 mg IM ONCE PRN 12/30/18 [History] Ascorbic Acid [Vitamin C] 1,000 mg PO DAILY 04/01/19 [History] Atorvastatin [Lipitor] 20 mg PO DAILY 04/01/19 [History] Vitamin A 8,000 unit PO DAILY 04/01/19 [History] Vitamin E 1,000 unit PO DAILY 04/01/19 [History] Follow up Appointment(s)/Referral(s): [facility] [place], [place] [NON-STAFF] - 04/20/19 Patient Instructions/Handouts: Gastritis (DC) Discharge Disposition: HOME SELF-CARE
[2019-04-04 14:59] VITALS: RESP 18
[2019-04-04 15:06] VITALS: BP 106/59; PULSE 63
== END 2019-04-04 15:45 | disposition home or self-care (01) ==
LOC: ORWHC2ENDO 13:03
PROVIDERS: ATTEND Surgery Plastic and Reconstructive Surgery
DX: K29.50 Unspecified chronic gastritis without bleeding (principal); K21.9 Gastro-esophageal reflux disease without esophagitis; E66.01 Morbid (severe) obesity due to excess calories; J45.909 Unspecified asthma, uncomplicated; Z79.899 Other long term (current) drug therapy; Z90.89 Acquired absence of other organs; Z98.51 Tubal ligation status; Z98.890 Other specified postprocedural states; Z80.9 Family history of malignant neoplasm, unspecified; Z88.6 Allergy status to analgesic agent; Z91.013 Allergy to seafood; Z91.048 Other nonmedicinal substance allergy status; Z88.0 Allergy status to penicillin; Z91.018 Allergy to other foods; Z68.41 Body mass index [BMI] 40.0-44.9, adult
CPT/HCPCS: 81025; 88305; 43239; J2001; J2704

== ENCOUNTER → 2019-04-27 | Outpatient (CLI) | payer BC ==
[2019-04-27 13:29] VITALS: BP 113/74; PULSE 80; TEMP 99.1; BMI 42.8
--- NOTE | 2019-04-27 14:12 | P.PN ---
Subjective Progress Note Date: 04/27/19 DATE OF SERVICE: 04/27/2019 CHIEF COMPLAINT: Morbid obesity HISTORY OF PRESENT ILLNESS: Mary Gomez is a 34-year-old female who comes with lifelong morbid obesity. As a result of her obesity, she has developed osteoarthritis and asthma. She is looking into band. She comes in with weight loss at 5 months. She has new food intolerances and reviewed to start protein shakes. She is now looking into sleeve and band. At height of 5 feet 8.75 inches, her ideal body weight is 163 pounds. Her highest weight was 297 pounds. Her BMI was 44.3 to 42.9. She comes in 288 pounds from 287 pounds, 4 months ago. Her body mass index is up to 42.9 from 42.8. She is 125 pounds overweight. PAST MEDICAL HISTORY: 1. Morbid obesity due to excess calories 2. Body mass index of 44.3 3. Osteoarthritis of the knees 4. Osteoarthritis of the lower back 5. Osteoarthritis of the hip 6. Osteoarthritis of the ankle 7. Anxiety 8. Asthma 9. Bradycardia PAST SURGICAL HISTORY: 1. Adeniodectomy 2. Tonsillectomy 3. Tubal ligation 4. Right knee aspiration HOME MEDICATIONS: ALLERGIES: Home Medications Medication Instructions Recorded Confirmed Albuterol Inhaler [Ventolin Hfa 1 - 2 puff INHALATION RT-Q6H PRN 02/26/17 12/30/18 Inhaler] Acetaminophen Tab [Tylenol Tab] 325 mg PO DAILY 02/22/18 12/30/18 EPINEPHrine [Epipen 2-Eliceo] 0.3 mg IM ONCE PRN 12/30/18 12/30/18 SOCIAL HISTORY: No past tobacco use. FAMILY HISTORY: No family history of ulcerative colitis disease or Crohn's disease. Family history of morbid obesity. Has lupus in the family. No reports of stomach or esophageal cancer. REVIEW OF ORGAN SYSTEMS: CONSTITUTIONAL: At height of 5 feet 8.75 inches, her ideal body weight is 163 pounds. Her highest weight was 297 pounds. Her BMI was 44.3. She is 125 pounds overweight. HEENT: Denies any active troubles with vision or hearing. ENDOCRINE: No diabetes. No hypothyroidism. CARDIOVASCULAR: No past reports of palpitations or heart attacks or chest pain. RESPIRATORY: Has daytime somnolence. Has asthma. GASTROINTESTINAL: Denies any bright red blood per rectum. No diarrhea. No constipation. MUSCULOSKELETAL: Has lower back pain and joint pain. Has osteoarthritis of the knees. NEURO: No headaches. No seizure disorders. PSYCH: No depression. No suicidal ideation. RHEUMATOLOGIC: No lupus. No rheumatoid arthritis. HEMATOLOGIC: Denies any abnormal bleeding or bruising. No personal history of DVTs. SKIN: No rash. No skin cancer. PHYSICAL EXAM: VITAL SIGNS: Height 5 foot 8.75 inches, weight 288 pounds. BMI 42.9 Vital Signs Temp 99.1 F 04/27/19 13:26 Pulse 80 04/27/19 13:26 Resp BP 113/74 04/27/19 13:26 Pulse Ox GENERAL: Well-developed in no acute distress. HEENT: No scleral icterus. Extraocular movements grossly intact. Hears conversational speech. No nasal drainage. NECK: Supple without lymphadenopathy. CHEST: Nonlabored respirations with equal bilateral excursions. CARDIOVASCULAR: Regular rate and regular rhythm. Distal 2+ pulses. ABDOMEN: Obese, soft, nontender, nondistended. MUSCULOSKELETAL: No clubbing, cyanosis. Gross strength 5/5 distal lower extremities. NEURO: No focal or lateralizing signs. Cranial nerves 2 through 12 grossly within normal limits. PSYCH: Appropriate affect. Alert and oriented to person, place and time. SKIN: Good skin turgor. Well perfused. LABS: Laboratory Last Values WBC 9.5 k/uL (3.8-10.6) 12/30/18 11:48 RBC 5.25 m/uL (3.80-5.40) 12/30/18 11:48 Hgb 12.9 gm/dL (11.4-16.0) 12/30/18 11:48 Hct 40.3 % (34.0-46.0) 12/30/18 11:48 MCV 76.8 fL (80.0-100.0) L 12/30/18 11:48 MCH 24.5 pg (25.0-35.0) L 12/30/18 11:48 MCHC 31.9 g/dL (31.0-37.0) 12/30/18 11:48 RDW 15.2 % (11.5-15.5) 12/30/18 11:48 Plt Count 253 k/uL (150-450) 12/30/18 11:48 Microcytosis Slight 12/30/18 11:48 PT 10.3 sec (9.0-12.0) 12/30/18 11:48 INR 1.0 (<1.2) 12/30/18 11:48 APTT 31.3 sec (22.0-30.0) H 12/30/18 11:48 Sodium 138 mmol/L (135-145) 12/30/18 11:48 Potassium 4.2 mmol/L (3.5-5.5) 12/30/18 11:48 Chloride 104 mmol/L (96-109) 12/30/18 11:48 Carbon Dioxide 27.6 mmol/L (21.6-31.8) 12/30/18 11:48 Anion Gap 6.40 mmol/L (4.00-12.00) 12/30/18 11:48 BUN 9.0 mg/dL (9.0-27.0) 12/30/18 11:48 Creatinine 0.6 mg/dL (0.6-1.5) 12/30/18 11:48 Est GFR (CKD-EPI)AfAm 137.8 (60.0-200.0) 12/30/18 11:48 Est GFR (CKD-EPI)NonAf 118.9 (60.0-200.0) 12/30/18 11:48 BUN/Creatinine Ratio 15.00 Ratio (12.00-20.00) 12/30/18 11:48 Glucose 90 mg/dL (70-110) 12/30/18 11:[address] Glu mg/dL 120 12/30/18 11:48 Hemoglobin A1c 5.8 % (4.0-6.0) 12/30/18 11:48 Calcium 9.3 mg/dL (8.7-10.3) 12/30/18 11:48 Phosphorus 3.0 mg/dL (2.4-5.1) 12/30/18 11:48 Magnesium 1.8 mg/dL (1.5-2.4) 12/30/18 11:48 Iron 74 ug/dL (50-170) 12/30/18 11:48 TIBC 358 ug/dL (228-460) 12/30/18 11:48 Iron Saturation 20.67 (12.00-45.00) 12/30/18 11:48 Ferritin 37.8 ng/mL (10.0-291.0) 12/30/18 11:48 Total Bilirubin 0.3 mg/dL (0.3-1.2) 12/30/18 11:48 AST 21 U/L (13-35) 12/30/18 11:48 ALT 22 U/L (8-44) 12/30/18 11:48 Alkaline Phosphatase 85 U/L (41-126) 12/30/18 11:48 Total Protein 6.6 g/dL (6.2-8.2) 12/30/18 11:48 Albumin 3.90 g/dL (3.80-4.90) 12/30/18 11:48 Globulin 2.7 g/dL (1.6-3.3) 12/30/18 11:48 Albumin/Globulin Ratio 1.44 g/dL (1.60-3.17) L 12/30/18 11:48 Prealbumin 21.0 mg/dL (18.0-42.0) 12/30/18 11:48 Triglycerides 393.0 mg/dL (0.0-149.0) H 12/30/18 11:48 Cholesterol 292 mg/dL (0-200) H 12/30/18 11:48 LDL Cholesterol, Calc 181.4 mg/dL (0.0-131.0) H 12/30/18 11:48 VLDL Cholesterol, Calc 78.60 mg/dL (5.00-40.00) H 12/30/18 11:48 HDL Cholesterol 32.0 mg/dL (40.0-60.0) L 12/30/18 11:48 Cholesterol/HDL Ratio 9.13 12/30/18 11:48 Vitamin A 28 ug/dL (38-106) L 12/30/18 11:48 Vitamin B1 62 ug/L (38-122) 12/30/18 11:48 Vitamin B12 660.0 pg/mL (200.0-944.0) 12/30/18 11:48 Vitamin D 25-Hydroxy 13.3 ng/mL (30.0-100.0) L 12/30/18 11:48 Folate 18.0 ng/mL 12/30/18 11:48 TSH 0.760 uIU/mL (0.350-5.500) 12/30/18 11:48 PTH Intact 32.9 pg/mL (14.0-72.0) 12/30/18 11:48 Copper 1072 ug/L (810-1990) 12/30/18 11:48 Selenium 102 mcg/L (63-160) 12/30/18 11:48 Zinc 60 ug/dL (60-130) 12/30/18 11:48 EKG EKG PERFORMED 12/30/18 12:20 Vitamin A is low Vitamin D is low EKG is normal EGD FINDINGS: Squamocolumnar junction 40 cm from the incisors. Diaphragmatic hiatus at 40 cm. Hill grade 1 lower esophageal valve. No LA grade A erosive esophagitis. No active duodenitis. Minimal gastritis Final Pathologic Diagnosis GASTRIC ANTRUM, BIOPSY: Chronic gastritis. Helicobacter organisms are not identified on routine H+E stained sections. ASSESSMENT: 1. Morbid obesity due to excess calories 2. Body mass index of 44.3 to 42.8 3. Osteoarthritis of the knees 4. Osteoarthritis of the lower back 5. Osteoarthritis of the hip 6. Osteoarthritis of the ankle 7. Anxiety 8. Asthma 9. Bradycardia 10. Hypercholesterolemia 11. Vitamin D deficiency 12. Vitamin A deficiency 13. Hypertriglyceridemia 14. Pre-diabetes PLAN: 1. She comes in with weight loss at 5 months. 2. Recommend vitamin A and D supplement. 3. Recommend adjustment of protein supplement for food intolerances 4. Overall, she is looking into sleeve or band 5. Continue with medical supervised weight loss. Objective - Vital Signs Vital signs: Vital Signs Temp 99.1 F 04/27/19 13:26 Pulse 80 04/27/19 13:26 Resp BP 113/74 04/27/19 13:26 Pulse Ox Intake & Output 04/26/19 04/27/19 04/27/19 18:59 06:59 18:59 Weight 130.725 kg
== END | disposition home or self-care (01) ==
LOC: BARWHC3 04-20 12:52
PROVIDERS: ATTEND Surgery Plastic and Reconstructive Surgery
DX: E66.01 Morbid (severe) obesity due to excess calories (principal); M17.0 Bilateral primary osteoarthritis of knee; M16.10 Unilateral primary osteoarthritis, unspecified hip; M19.079 Primary osteoarthritis, unspecified ankle and foot; F41.9 Anxiety disorder, unspecified; J45.909 Unspecified asthma, uncomplicated; E78.00 Pure hypercholesterolemia, unspecified; E55.9 Vitamin D deficiency, unspecified; E50.9 Vitamin A deficiency, unspecified; E78.1 Pure hyperglyceridemia; R00.1 Bradycardia, unspecified; R73.03 Prediabetes; Z68.41 Body mass index [BMI] 40.0-44.9, adult; Z83.49 Family history of other endocrine, nutritional and metabolic diseases; Z79.899 Other long term (current) drug therapy
CPT/HCPCS: 99211

== ENCOUNTER 2020-01-11 12:21 | Emergency (ER) | payer BC ==
[2020-01-11 12:41] VITALS: TEMP 98.7
[2020-01-11] MEDS ORDERED: IPRATROPIUM-ALBUTEROL 3 ML NEB INHALATION STA (13:11)
[2020-01-11] MEDS ORDERED: predniSONE 20 MG TAB PO STA (13:11)
[2020-01-11] MEDS ORDERED: PANTOPRAZOLE 40 MG/10 ML VIAL IVP STA (13:11)
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
[2020-01-11 14:13] VITALS: RESP 16
[2020-01-11 14:26] LABS: Basophils % (A) 0 %; Eosinophils # (A) 0.2 k/uL (0-0.7); Eosinophils % (A) 1 %; HCT 38.1 % (34.0-46.0); HGB 12.1 gm/dL (11.4-16.0); Hypochromasia Slight; Lymphocytes # (A) 1.8 k/uL (1.0-4.8); Lymphocytes % (A) 16 %; MCH 24.4 pg (25.0-35.0); MCHC 31.9 g/dL (31.0-37.0); MCV 76.5 fL (80.0-100.0); Mean Platelet Volume 7.6; Microcytosis Slight; Monocytes # (A) 0.4 k/uL (0-1.0); Monocytes % (A) 4 %; Neutrophils # (A) 8.8 k/uL (1.3-7.7); Neutrophils % (A) 78 %; Platelet Count 247 k/uL (150-450); RBC 4.98 m/uL (3.80-5.40); WBC 11.3 k/uL (3.8-10.6)
[2020-01-11 14:46] LABS: ALT 45 U/L (4-34); AST 52 U/L (14-36); African American GFR (CKD) >90 (>60 ml/min/1.73 sqM); Albumin 3.8 g/dL (3.5-5.0); Alkaline Phosphatase 91 U/L (38-126); Anion Gap 8 mmol/L; Blood Urea Nitrogen 8 mg/dL (7-17); Calcium 8.9 mg/dL (8.4-10.2); Carbon Dioxide 23 mmol/L (22-30); Chloride 103 mmol/L (98-107); Glucose 96 mg/dL (74-99); Non-African American GFR(CKD) >90 (>60 ml/min/1.73 sqM); Potassium 4.6 mmol/L (3.5-5.1); Sodium 134 mmol/L (137-145); Total Bilirubin 0.5 mg/dL (0.2-1.3); Total Protein 7.2 g/dL (6.3-8.2)
--- NOTE | 2020-01-11 15:25 | XR ---
EXAMINATION TYPE: XR chest 2V DATE OF EXAM: 01/11/2020 COMPARISON: 08/10/2017 HISTORY: 34-year-old female difficulty breathing, shortness of breath TECHNIQUE: PA and lateral views FINDINGS: Heart upper limits of normal in size. Low lung volumes. Mild peribronchial cuffing. No consolidation or pleural effusion. IMPRESSION: Mild peribronchial cuffing. Correlate for possible bronchitis or asthma.
[2020-01-11 15:48] VITALS: BP 127/78; PULSE 85
== END 2020-01-11 15:47 | disposition home or self-care (01) ==
LOC: EC 12:21
DX: J45.901 Unspecified asthma with (acute) exacerbation (principal); R60.0 Localized edema; Z88.6 Allergy status to analgesic agent; Z88.8 Allergy status to other drugs, medicaments and biological substances; Z88.0 Allergy status to penicillin; Z91.013 Allergy to seafood; Z91.048 Other nonmedicinal substance allergy status; Z91.018 Allergy to other foods; Z79.51 Long term (current) use of inhaled steroids
CPT/HCPCS: 36415; 93005; 85379; 80053; 85025; 71046; 99285; 96374; J7512; C9113

== ENCOUNTER → 2020-09-12 | Outpatient (CLI) | payer BC, OTHER ==
--- NOTE | 2020-09-12 11:14 | EST ---
EXERCISE STRESS AGE: 35 SEX: Female HT: 5'10" WT: 310 lbs. PROTOCOL: Ryan STAGE: 2 DURATION OF EXERCISE: 6 minutes HEART RATE REST: 78 BLOOD PRESSURE REST: 134/73 MAXIMUM HEART RATE ACHIEVED: 172 MAXIMUM BLOOD PRESSURE: 213/107 85% MPHR: 156 100% MPHR: 184 METS: 7 INDICATIONS: Chest pain. CLINICAL INFORMATION: Baseline EKG shows sinus rhythm, normal axis, normal intervals. Patient exercised on Ryan protocol for a total of 6 minutes achieving 7 METs, 93% of predicted maximal heart rate without chest pain or diagnostic ST-segment depression. CONCLUSIONS: 1. Limited exercise tolerance. 2. Negative stress test by EKG criteria. MMODL / IJN: [id number] /
== END | disposition home or self-care (01) ==
LOC: RADNMMAIN 08:02
PROVIDERS: ATTEND Internal Medicine
DX: R07.9 Chest pain, unspecified (principal)
CPT/HCPCS: 93017

== ENCOUNTER → 2021-12-12 | Outpatient (CLI) | payer BC ==
--- NOTE | 2021-12-12 19:08 | US ---
EXAMINATION TYPE: US venous doppler duplex UE LT DATE OF EXAM: 12/12/2021 COMPARISON: NONE CLINICAL HISTORY: PAIN IN LEFT SHOULDER AND LEFT ARM [id number]. pain unable to lift arm SIDE PERFORMED: left Left Arm: Negative for DVT Grayscale, color doppler, spectral doppler imaging performed of the deep veins of the left upper extr emity. There is normal flow, compressibility and vascular waveforms. IMPRESSION: No ultrasound evidence for acute deep or superficial venous thrombosis in the left upper extremity.
--- NOTE | 2021-12-12 19:14 | XR ---
EXAMINATION TYPE: XR shoulder complete LT DATE OF EXAM: 12/12/2021 CLINICAL HISTORY: Pain. TECHNIQUE: Two views of the left shoulder are obtained. COMPARISON: None. FINDINGS: There is no acute fracture/dislocation evident in the left shoulder. The acromioclavicula r and glenohumeral joint spaces appear within normal limits. Distal acromion morphology unremarkable. The visualized ribs are intact . IMPRESSION: Unremarkable study.
== END | disposition home or self-care (01) ==
LOC: RADUSWWP 16:57
PROVIDERS: ATTEND Internal Medicine
DX: M25.512 Pain in left shoulder (principal); M79.602 Pain in left arm; M79.622 Pain in left upper arm
CPT/HCPCS: 93922

== ENCOUNTER → 2022-05-12 | Outpatient (CLI) | payer BC ==
--- NOTE | 2022-05-12 12:00 | US ---
EXAMINATION TYPE: US transvaginal DATE OF EXAM: 05/12/2022 COMPARISON: CT 2021, US 2018 CLINICAL HISTORY: N83.201 UNSPECIFIED OVARIAN CYST, RIGHT SIDE. Right pelvic pain x 3 weeks TECHNIQUE: Transvaginal exam only per ordering physician Date of LMP: 04/20/2022 EXAM MEASUREMENTS: Uterus: 8.9 x 5.8 x 4.8 cm Endometrial Stripe: 1.2 cm Right Ovary: 3.1 x 2.0 x 2.5 cm Left Ovary: 2.3 x 1.8 x 1.9 cm Difficult and limited study due to patient body habitus 1. Uterus: anteverted, heterogeneous with 2.1 x 1.8 x 2.1cm hypoechoic area left myometrium - probab le fibroid 2. Endometrium: 1.6 x 0.9 x 1.7cm hyperechoic vascular area seen within fundal portion of endo - ? p olyp 3. Right Ovary: 1.3cm hypoechoic area 4. Left Ovary: wnl 5. Bilateral Adnexa: wnl 6. Posterior cul-de-sac: wnl IMPRESSION: Fibroid uterus. Fundal vascular mass which may represent endometrial polyp versus submucosal fibroid. Consider further evaluation with direct visualization.
== END | disposition home or self-care (01) ==
LOC: RADUSWWP 11:05
PROVIDERS: ATTEND Family Medicine
DX: D25.9 Leiomyoma of uterus, unspecified (principal); N83.201 Unspecified ovarian cyst, right side
CPT/HCPCS: 76830; 84702

== ENCOUNTER → 2022-07-04 | Outpatient (CLI) | payer BC ==
--- NOTE | 2022-07-07 15:51 | MM ---
Reason for Exam: Screening (asymptomatic). Last mammogram was performed 4 year(s) and 10 month(s) ago. Patient History: Menarche at age 11. First Full-Term at age 16. Patient used Progesterone for 2 years. Sister had breast cancer, age 37. Last menstrual period: 06/21/2022 Risk Values: Jayna 5 year model risk: 0.8%. NCI Lifetime model risk: 18.0%. Prior Study Comparison: 09/10/2017 Bilateral Screening Mammogram, [facility]. Tissue Density: There are scattered fibroglandular densities. Findings: Analyzed By CAD. Pattern appears symmetrical and stable. No significant interval change is evident. No suspicious groups of microcalcifications, spiculated or lobular masses, architectural distortion or other secondary signs of malignancy are mammographically apparent. Overall Assessment: Benign, BI-RAD 2 Management: Screening Mammogram of both breasts in 1 year. A negative mammogram report should not preclude additional follow up of suspicious palpable abnormalities. Patient should continue monthly self breast exam. A clinical breast exam by your physician is recommended on an annual basis and results should be correlated with mammographic findings. Electronically signed and approved by: Roland Vasquez D.O. Radiologis
== END | disposition home or self-care (01) ==
LOC: RADMAMWWP 16:17
PROVIDERS: ATTEND Obstetrics & Gynecology Obstetrics
DX: Z12.31 Encounter for screening mammogram for malignant neoplasm of breast (principal); Z80.3 Family history of malignant neoplasm of breast
CPT/HCPCS: 77063; 77067

== ENCOUNTER 2022-07-10 13:49 | Day surgery (SDC) | payer BC ==
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
[~2022-07-10 13:49] MED LIST changes: -ACETAMINOPHEN IV (For NPO) 1,000 MG in EMPTY BAG 1 BAG IVPB NR; -DEXAMETHASONE SOD PHOSPHATE 10 MG/ML 1 ML VIAL IV ONE; +DEXAMETHASONE SOD PHOSPHATE 4 MG/ML 1 ML VIAL IV ONE; -GLYCOPYRROLATE 0.2 MG/ML 2 ML VIAL ONE; +HEPARIN SODIUM,PORCINE/PF 5,000 UNIT/0.5 ML SYRINGE SQ PRN; -KETOROLAC 30 MG/ML 1 ML VIAL IVP ONE; -LACTATED RINGERS 1,000 ML IV SCH; -LIDOCAINE 1% 20 ML VIAL (10MG/ML) FOR IV START INTRADERMA PRN; -LIDOCAINE 1% INJ 10MG/ML (20 ML MDV) ONE; -LIDOCAINE 1% INJ 10MG/ML (20 ML MDV) SQ ONE; -LIDOCAINE 2% GEL 30 ML TUBE TOPICAL ONE; -MIDAZOLAM 2 MG/2 ML VIAL IV PRN; -MIDAZOLAM 2 MG/2 ML VIAL ONE; -NEOSTIGMINE 1 MG/ML 10 ML VIAL ONE; -PROPOFOL 10 MG/ML 20 ML VIAL IV ONE; -Pre Op ABX Message 1 EACH MISC MISCELLANE ONE; -ROCURONIUM BROMIDE 10 MG/ML 10 ML VIAL IV ONE; -SCOPOLAMINE 1.5MG/72HR PATCH TRANSDERM ONE; -SUCCINYLCHOLINE CHLORIDE 100 MG/5 ML SYR IV ONE; +ceFAZolin 3 GM in SODIUM CHLORIDE 0.9% 100 ML IVPB PRN; +fentaNYL (PF) 50 MCG/ML 2 ML AMP IVP PRN; -fentaNYL (PF) 50 MCG/ML 2 ML AMP ONE
[2022-07-10 14:44] LABS: Glucose,Whole Blood 104 mg/dL (70-110)
[2022-07-10] MEDS: LACTATED RINGERS 1,000 ML IV SCH ×2 (14:44→22:11)
[2022-07-10 14:57] LABS: Basophils # (A) 0.1 k/uL (0-0.2); Basophils % (A) 1 %; Eosinophils # (A) 0.1 k/uL (0-0.7); Eosinophils % (A) 1 %; HCT 40.2 % (34.0-46.0); HGB 12.8 gm/dL (11.4-16.0); Hypochromasia Moderate; Lymphocytes # (A) 2.5 k/uL (1.0-4.8); Lymphocytes % (A) 21 %; MCH 23.8 pg (25.0-35.0); MCHC 31.8 g/dL (31.0-37.0); MCV 74.9 fL (80.0-100.0); Microcytosis Slight; Monocytes # (A) 0.5 k/uL (0-1.0); Monocytes % (A) 5 %; Neutrophils # (A) 8.2 k/uL (1.3-7.7); Neutrophils % (A) 71 %; Platelet Count 284 k/uL (150-450); RBC 5.37 m/uL (3.80-5.40); RDW 15.6 % (11.5-15.5); WBC 11.6 k/uL (3.8-10.6)
[2022-07-10 15:10] LABS: ALT 29 U/L (4-34); AST 20 U/L (14-36); African American GFR (CKD) >90 (>60 ml/min/1.73 sqM); Albumin 3.8 g/dL (3.5-5.0); Alkaline Phosphatase 103 U/L (38-126); Anion Gap 3 mmol/L; Blood Urea Nitrogen 11 mg/dL (7-17); Calcium 8.7 mg/dL (8.4-10.2); Carbon Dioxide 31 mmol/L (22-30); Chloride 103 mmol/L (98-107); Glucose 108 mg/dL (74-99); Non-African American GFR(CKD) >90 (>60 ml/min/1.73 sqM); Potassium 3.8 mmol/L (3.5-5.1); Sodium 137 mmol/L (137-145); Total Bilirubin 0.5 mg/dL (0.2-1.3); Total Protein 6.7 g/dL (6.3-8.2)
[2022-07-10] MEDS ORDERED: MIDAZOLAM 2 MG/2 ML VIAL IVP ONE (15:35)
[2022-07-10] MEDS ORDERED: fentaNYL (PF) 50 MCG/1 ML VIAL IVP ONE (15:35)
--- NOTE | 2022-07-10 15:58 | P.ANPRN ---
Procedure Note - Anesthesia - Nerve Block Performed Bilateral Transversus Abdominis Single Time Out Performed: Yes ([id number]) Date of Procedure: 07/10/22 Procedure Start Time: 15:36 Procedure Stop Time: 15:42 Location of Patient: PreOp Indication: Acute Post-Operative Pain, Requested by Surgeon Specifically requested for management of pain by : Sheryl Freitas Sedation Type: Sedate with meaningful contact maintained Preparation: Sterile Prep Position: Supine Catheter: None Needle Types: Pajunk Needle Gauge: 21 Ultrasound used to visualize needle placement: Yes Ultrasound used to observe medication spread: Yes Injectate: 0.5% Ropivacaine (see comment for volume) (20cc + 10cc nacl pf each side) Blood Aspirated: No Pain Paresthesia on Injection Noted: No Resistance on Injection: Normal Image Stored and Saved: Yes Events: Uneventful and Well Tolerated
[2022-07-10] MEDS ORDERED: MIDAZOLAM 2 MG/2 ML VIAL ONE (16:54)
[2022-07-10] MEDS ORDERED: PROPOFOL 10 MG/ML 20 ML VIAL IV ONE (16:54)
[2022-07-10] MEDS ORDERED: SUCCINYLCHOLINE CHLORIDE 200 MG/10 ML VIAL IV ONE (16:54)
[2022-07-10] MEDS ORDERED: ROPIVACAINE 5 MG/ML 30 ML VIAL ONE (16:54)
[2022-07-10] MEDS ORDERED: HYDROmorphone (PF) 1 MG/ML ONE (16:54)
[2022-07-10] MEDS ORDERED: fentaNYL (PF) 50 MCG/ML 2 ML AMP ONE (16:54)
[2022-07-10] MEDS ORDERED: SODIUM CHLORIDE 0.9% (PF) 10 ML VIAL ONE (16:54)
[2022-07-10] MEDS ORDERED: GLYCOPYRROLATE 0.2 MG/ML 2 ML VIAL ONE (16:54)
[2022-07-10] MEDS ORDERED: ROCURONIUM 10 MG/ML (5 ML VIAL) IV ONE (16:54)
[2022-07-10] MEDS ORDERED: LIDOCAINE 2% INJ 20 MG/ML (2 ML VIAL) ONE (16:54)
[2022-07-10] MEDS ORDERED: BUPIVACAIN-EPI 0.25%-1:200,000 30 ML VIAL SQ ONE (17:32)
[2022-07-10] MEDS ORDERED: LACTATED RINGERS 1,000 ML IV ONE ×3 (17:34→20:00)
[2022-07-10] MEDS ORDERED: NALOXONE 0.4 MG/ML 1 ML VIAL IV PRN ×2 (19:19→19:22)
[2022-07-10] MEDS ORDERED: ONDANSETRON 4 MG/2 ML VIAL IVP PRN (19:19)
[2022-07-10] MEDS ORDERED: SCOPOLAMINE 1 MG/72 HR PATCH TRANSDERM STA (19:21)
--- NOTE | 2022-07-10 19:29 | P.OP ---
Date of Procedure: 07/10/22 Description of Procedure: SURGEON: SHERYL FREITAS MD PREOPERATIVE DIAGNOSES: 1. Initial epigastric ventral hernia with incarceration POSTOPERATIVE DIAGNOSES: 1. Initial epigastric ventral hernia with incarceration, 7 x 3 cm OPERATION: 1. Robotic-assisted da Magdaleno Xi laparoscopic repair of initial incarcerated epigastric ventral hernia with mesh, ventralight ST mesh 10 x 15 cm Anesthesia: GETA, regional, local Estimated Blood Loss (ml): 5 Pathology: 1. Incarcerated upper midline ventral hernia defect COMPLICATIONS: None. Operative Findings: 1. Upper midline epigastric ventral hernia defect 7 x 3 cm 2. Fascia repaired using #1 V-lock suture with fascial imbrication 2 INDICATIONS: The patient is a 37-year-old male who presents with a personal history of multiple abdominal wall hernias. Surgical intervention with laparoscopic versus robotic and open techniques were reviewed. Placement of mesh was also reviewed. Benefits and risks were thoroughly described. Informed consent was obtained. DESCRIPTION OF PROCEDURE: The patient was brought into the operating room and laid in supine position. After general induction, the abdomen had been prepped and draped in standard sterile fashion. Ioban draping was also placed. Prior to incision, a timeout protocol was confirmed with surgical team regarding the patient's name including procedures to be performed. The robot was primed prior to the procedure. A field block using local anesthetic was placed along hernia site including the proposed port sites. Initial incision was made with an #11 blade along the left upper quadrant. A 0 degree 5 mm laparoscopic trocar entry was performed and insufflated. Three 8 mm ports were placed along the left lateral abdominal wall under direct localization after exchanging the 5-mm for an 8 mm port. Placements of the ports were 15 cm from the target anatomy and 10 cm apart. An accessory 12 mm port was placed at the right upper quadrant for exchange of mesh including sutures. The [employer] Xi robot was previously primed, prepped and draped then docked from the right side of the patient onto the left side of the patient. I then sat at the robot [employer] Xi console where working arms of the robot including Bovie cautery connected to robotic scissors, needle school boat driver, and graspers placed by the enrichment assistant. Incarcerated omental contents were found along the upper midline defect including umbilicus. The defects were reduced with preperitoneal fat including the falciform ligament at the upper midline defect. Two distinct fascial defects were found: Upper midline defect 4 x 3 cm and umbilical hernia defect 2 x 3 cm. The incarcerated contents were reduced as the peritoneal fat was cleaned from the abdominal wall. Next, hemostasis was checked with cautery. The hernia defects were oversewn using #1 nonabsorbable V-lock suture for each defect separately with fascial imbrication x 2. Next, ventralight ST mesh 11.4 cm was placed with the rough side towards the abdominal wall as to cover the epigastric including umbilical defect. 2-0 VLOC 9 inch sutures were used to fixate the mesh. A final endoscopic imaging was obtained. All instruments and pneumoperitoneum were evacuated from the abdominal cavity. The da Magdaleno Xi robot was undocked from the patient. I re-scrubbed into the case for closure of incisions. The fascia of the 12-mm port was probed and less than 8-mm in size. The incisions were reapproximated using 4-0 Monocryl in an interrupted subcuticular fashion. Liquid glue was applied to the skin after cleansing the skin with normal saline and dilute hydrogen peroxide. An abdominal binder was placed. An umbilical dressing was placed prior. At the end of the procedure, needle, sponge, and instrument count had been verified correct by surgical scrub tech. The patient was taken to the postanesthesia care unit in stable condition. Plan - Discharge Summary Discharge Rx Participant: No New Discharge Prescriptions: New Cyclobenzaprine [Flexeril] 10 mg PO TID #30 tab Ibuprofen [Motrin] 600 mg PO Q8HR PRN #30 tab PRN Reason: Pain Acetaminophen Tab [Tylenol Tab] 1,000 mg PO Q6HR PRN #30 tablet PRN Reason: Pain Continue Acetaminophen Tab [Tylenol] 325 mg PO Q6H PRN PRN Reason: Pain Albuterol Sulfate [Ventolin HFA] 1 puff INHALATION RT-QID PRN PRN Reason: Shortness Of Breath Albuterol Sulfate [Ventolin HFA] 1 puff INHALATION RT-BID Budesonide/Formoterol Fumarate [Symbicort 80-4.5 Mcg Inhaler] 1 puff INHALATION BID #1 inhaler Ibuprofen [Motrin] 600 mg PO Q8HR PRN #20 tab PRN Reason: Pain metFORMIN HCL 500 mg PO DAILY Atorvastatin [Lipitor] 40 mg PO DAILY Ferrous Sulfate [Iron] 325 mg PO DAILY Discharge Medication List Acetaminophen Tab [Tylenol] 325 mg PO Q6H PRN 02/22/18 [History] Albuterol Sulfate [Ventolin HFA] 1 puff INHALATION RT-BID 01/11/20 [History] Albuterol Sulfate [Ventolin HFA] 1 puff INHALATION RT-QID PRN 01/11/20 [History] Budesonide/Formoterol Fumarate [Symbicort 80-4.5 Mcg Inhaler] 1 puff INHALATION BID #1 inhaler 01/11/20 [Rx] Ibuprofen [Motrin] 600 mg PO Q8HR PRN #20 tab 04/30/22 [Rx] Atorvastatin [Lipitor] 40 mg PO DAILY 07/09/22 [History] Ferrous Sulfate [Iron] 325 mg PO DAILY 07/09/22 [History] metFORMIN HCL 500 mg PO DAILY 07/09/22 [History] Acetaminophen Tab [Tylenol Tab] 1,000 mg PO Q6HR PRN #30 tablet 07/10/22 [Rx] Cyclobenzaprine [Flexeril] 10 mg PO TID #30 tab 07/10/22 [Rx] Ibuprofen [Motrin] 600 mg PO Q8HR PRN #30 tab 07/10/22 [Rx] Follow up Appointment(s)/Referral(s): Sheryl Freitas MD [STAFF PHYSICIAN] - 07/15/22 (Telehealth) Patient Instructions/Handouts: *[facility] - Managing Your Pain After Surgery Without Opioids, Laparoscopic Herniorrhaphy (IP), Abdominal Binder (DC), Ventral Hernia Repair (DC) Activity/Diet/Wound Care/Special Instructions: Using antibacterial soap. No lifting over 4 pounds 4 weeks, Aug 04November shower. No bathtub soaks for 2 weeks, Aug 04 Wear abdominal binder daily for comfort except for showering. Use ice along incisions for today to prevent swelling. Take tylenol, aleve/ibuprofen, simethicone scheduled for 3 days for best pain relief Discharge Disposition: HOME SELF-CARE
[2022-07-10] MEDS ORDERED: HYDROmorphone 0.5 MG/0.5 ML SYRINGE IVP ONE (19:52)
[2022-07-10] MEDS ORDERED: fentaNYL PCA 500 MCG/50 ML BAG IV PRN (20:12)
[2022-07-10] MEDS: ALBUTEROL NEBULIZED 2.5 MG/3 ML INHALATION SCH (20:49)
[2022-07-10] MEDS: ACETAMINOPHEN TAB 325 MG TAB PO SCH (22:17)
[2022-07-10] MEDS: GABAPENTIN 300 MG CAP PO SCH (22:19)
[2022-07-10] MEDS: HYDROmorphone 1 MG/ML 1 ML SYRINGE IVP PRN (22:19)
[2022-07-10] MEDS: KETOROLAC 15 MG/ML 1 ML VIAL IVP SCH (23:42)
[2022-07-10] MEDS: SODIUM CHLORIDE 0.9% 1,000 ML IV SCH (23:44)
[2022-07-11] MEDS: ceFAZolin 3 GM in SODIUM CHLORIDE 0.9% 100 ML IVPB SCH ×2 (00:59→08:12)
[2022-07-11] MEDS: ACETAMINOPHEN TAB 325 MG TAB PO SCH ×2 (02:34→08:12)
[2022-07-11 03:18] VITALS: RESP 16; TEMP 98.2
[2022-07-11] MEDS: KETOROLAC 15 MG/ML 1 ML VIAL IVP SCH ×2 (06:25→12:38)
[2022-07-11] MEDS: SODIUM CHLORIDE 0.9% 1,000 ML IV SCH ×2 (06:29→12:37)
[2022-07-11] MEDS: LACTATED RINGERS 1,000 ML IV SCH ×2 (06:29)
[2022-07-11] MEDS: ALBUTEROL NEBULIZED 2.5 MG/3 ML INHALATION SCH (07:13)
[2022-07-11] MEDS ORDERED: SYMBICORT 80-4.5 MCG INHALER INHALATION SCH (08:00)
[2022-07-11] MEDS: GABAPENTIN 300 MG CAP PO SCH (08:20)
[2022-07-11 08:21] VITALS: BP 111/70; PULSE 69
[2022-07-11] MEDS: HYDROmorphone 1 MG/ML 1 ML SYRINGE IVP PRN (08:55)
[2022-07-11] MEDS ORDERED: metFORMIN 500 MG TAB PO SCH (09:00)
[2022-07-11] MEDS ORDERED: ATORVASTATIN 40 MG TAB PO SCH (09:00)
[2022-07-11] MEDS ORDERED: FERROUS SULFATE 325 MG TAB PO SCH (09:00)
[2022-07-11] MEDS ORDERED: ENOXAPARIN 30 MG/0.3 ML SYRINGE SQ SCH (09:00)
--- NOTE | 2022-07-11 11:37 | P.PN ---
Subjective Progress Note Date: 07/11/22 CHIEF COMPLAINT: Ventral hernia HISTORY OF PRESENT ILLNESS: The patient is a 37-year-old female status post robotic repair of incarcerated ventral hernia. She is postop day 1. is at bedside. She is tolerating diet. Pain is fair. ROS: No reports of nausea and vomiting. No bowel movements. No fevers or chills. No new chest pain. No productive sputum PHYSICAL EXAM: VITAL SIGNS: Reviewed CONSTITUTIONAL: Well developed and in no acute distress. EYES: Conjuctivae without sclera icterus. Extraocular movements grossly intact. HEAD, EARS, NOSE, THROAT: Moist buccal mucosa. Head is atraumatic, normocephalic. Hears conversational speech. No nasal drainage. RESPIRATORY: Non-labored respirations and equal bilateral excursions. CARDIOVASCULAR: Palpable 2+ radial pulses. ABDOMEN: Abdominal binder intact. No recurrent hernia. MUSCULOSKELETAL: No gross deformity of the lower extremities noted. No clubbing. No cyanosis. SKIN: Good skin turgor. Well perfused. NEUROLOGIC: Cranial nerves II through XII grossly intact. No focal or lateralizing signs. PSYCH: Appropriate affect. Alert and oriented to person, place and time. CLINICAL LABS: Reviewed. ASSESSMENT: 1. Incarcerated ventral hernia. 2. Morbid obesity due to excess calories, BMI 45.1. PLAN: 1. Stable for discharge. 2. Return to work extended to August 11 the earliest. 3. No lifting over 4 pounds for 4 weeks until August 11 with release of restrictions. 4. Nonnarcotic pain management reviewed including using Tylenol, ibuprofen, Flexeril, simethicone Objective - Vital Signs Vital signs: Vital Signs Temp 98.2 F 07/11/22 07:20 Pulse 72 07/11/22 07:25 Resp 16 07/11/22 07:20 BP 111/70 07/11/22 07:20 Pulse Ox 100 07/11/22 07:20 FiO2 21 07/10/22 20:51 Intake & Output 07/10/22 07/11/22 07/11/22 18:59 06:59 18:59 Intake Total 1900 250 240 Output Total 5 Balance 1895 250 240 Weight 142.6 kg 142.6 kg Intake: IV 1900 250 Oral 240 Output: Estimated Blood Loss 5 Other: # Voids 2 - Labs CBC & Chem 7: 07/10/22 14:41 07/10/22 14:41 Labs: Abnormal Lab Results - Last 24 Hours (Table) 07/10/22 07/10/22 Range/Units 14:41 14:41 WBC 11.6 H (3.8-10.6) k/uL MCV 74.9 L (80.0-100.0) fL MCH 23.8 L (25.0-35.0) pg RDW 15.6 H (11.5-15.5) % Neutrophils # 8.2 H (1.3-7.7) k/uL Carbon Dioxide 31 H (22-30) mmol/L Glucose 108 H (74-99) mg/dL
== END 2022-07-11 11:35 | disposition home or self-care (01) ==
LOC: OR 13:49 → 6NMEDSUR 18:52 → OR 07-11 11:35
PROVIDERS: ATTEND Surgery Plastic and Reconstructive Surgery
DX: K43.6 Other and unspecified ventral hernia with obstruction, without gangrene (principal); G89.18 Other acute postprocedural pain; J45.909 Unspecified asthma, uncomplicated; E78.5 Hyperlipidemia, unspecified; Z90.89 Acquired absence of other organs; Z98.51 Tubal ligation status; G47.30 Sleep apnea, unspecified; Z80.9 Family history of malignant neoplasm, unspecified; Z79.51 Long term (current) use of inhaled steroids; Z79.899 Other long term (current) drug therapy; Z79.1 Long term (current) use of non-steroidal anti-inflammatories (NSAID); Z79.84 Long term (current) use of oral hypoglycemic drugs; Z88.0 Allergy status to penicillin; Z88.6 Allergy status to analgesic agent; Z88.4 Allergy status to anesthetic agent; Z91.013 Allergy to seafood; Z88.8 Allergy status to other drugs, medicaments and biological substances
CPT/HCPCS: 94640 ×3; 94760 ×2; 81025; 64488; 80053; 85025; 49653; C1781; J2250; J0330; J1100; J0690 ×2; J2405; J3010 ×2; J1650; J1170 ×3; J2795; J1885 ×2; J2704; J2001; 88305

== ENCOUNTER 2023-02-21 09:24 | Emergency (ER) | payer BC, OTHER ==
[2023-02-21 10:11] LABS: Anisocytosis Slight; Basophils % (A) 0 %; Eosinophils # (A) 0.2 k/uL (0-0.7); Eosinophils % (A) 2 %; HCT 36.3 % (34.0-46.0); HGB 11.9 gm/dL (11.4-16.0); Hypochromasia Slight; Lymphocytes # (A) 2.3 k/uL (1.0-4.8); Lymphocytes % (A) 22 %; MCHC 32.7 g/dL (31.0-37.0); MCV 70.4 fL (80.0-100.0); Mean Platelet Volume 7.5; Microcytosis Marked; Monocytes # (A) 0.5 k/uL (0-1.0); Monocytes % (A) 5 %; Neutrophils % (A) 69 %; Platelet Count 252 k/uL (150-450); RBC 5.15 m/uL (3.80-5.40); RDW 16.4 % (11.5-15.5); WBC 10.1 k/uL (3.8-10.6)
[2023-02-21 10:23] LABS: ALT 17 U/L (4-34); AST 16 U/L (14-36); African American GFR (CKD) >90 (>60 ml/min/1.73 sqM); Albumin 3.7 g/dL (3.5-5.0); Alkaline Phosphatase 85 U/L (38-126); Amylase 65 U/L (30-110); Anion Gap 7 mmol/L; Blood Urea Nitrogen 8 mg/dL (7-17); Calcium 8.6 mg/dL (8.4-10.2); Carbon Dioxide 28 mmol/L (22-30); Chloride 100 mmol/L (98-107); Glucose 114 mg/dL (74-99); Lipase 227 U/L (23-300); Non-African American GFR(CKD) >90 (>60 ml/min/1.73 sqM); Potassium 4.2 mmol/L (3.5-5.1); Sodium 135 mmol/L (137-145); Total Bilirubin 0.4 mg/dL (0.2-1.3); Total Protein 6.8 g/dL (6.3-8.2)
[2023-02-21 11:25] LABS: Appearance,Urine Cloudy (Clear); Bacteria,Urine Many /hpf; Bilirubin,Urine Negative (Negative); Blood,Urine Negative (Negative); Color,Urine Yellow; Glucose,Urine (UA) Negative (Negative); Ketones,Urine Negative (Negative); Leukocyte Esterase,Urine Large (Negative); Mucus,Urine Moderate /hpf; Nitrite,Urine Negative (Negative); PH, Urine 6.5 (5.0-8.0); Protein,Urine Trace (Negative); RBC,Urine 3 /hpf (0-5); Specific Gravity,Urine 1.025 (1.001-1.035); Squamous Epithelial Cell,Urine 10 /hpf (0-4); Urobilinogen,Urine <2.0 mg/dL (<2.0); WBC,Urine 44 /hpf (0-5)
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
[2023-02-21] MEDS ORDERED: MORPHINE SULFATE 4 MG/ML SYRINGE IVP STA (12:31)
--- NOTE | 2023-02-21 14:39 | CT ---
EXAMINATION TYPE: CT abdomen pelvis wo con DATE OF EXAM: 02/21/2023 COMPARISON: 04/30/2022 INDICATION: EPIGASTRIC PAIN X4 DAYS DLP: 2200.4 mGycm, Automated exposure control for dose reduction was used. CONTRAST: 0 mL of Isovue 300. Study performed without Oral Contrast TECHNIQUE: Axial images were obtained from above the diaphragm to the pubic rami in the axial plane a t 5 mm thick sections. Reconstructed images are reviewed on the computer in the coronal plane. FINDINGS: Limited CT sections are obtained the lung bases. The lung bases are clear. CT ABDOMEN: Liver: Normal Spleen: Normal Pancreas: Normal Adrenal glands: The adrenal glands are normal. Gallbladder: Normal Kidneys: No masses are evident. No hydronephrosis is present. No cysts are present. No renal stone s are evident. Aorta: Normal Inferior vena cava: Normal. CT PELVIS: Loops of bowel within the abdomen and pelvis are normal. This study is lateral contrast limiting bowel evaluation. Appendix: Normal as visualized. Urinary bladder: Normal. Genitourinary structures: Uterus is normal. Adnexa are unremarkable Osseous structures: No suspicious lytic or sclerotic lesions. IMPRESSIONS: 1. No acute abdomen or pelvic abnormality noncontrast CT
[2023-02-21] MEDS ORDERED: ACET/COD 300 MG/30 MG STARTER PACK 6 TAB BTL PO STA (14:57)
[2023-02-21 15:13] VITALS: BP 116/78; PULSE 67; RESP 16; TEMP 98
== END 2023-02-21 15:11 | disposition home or self-care (01) ==
LOC: EC 09:24
DX: N39.0 Urinary tract infection, site not specified (principal); J45.909 Unspecified asthma, uncomplicated; Z79.84 Long term (current) use of oral hypoglycemic drugs; Z79.899 Other long term (current) drug therapy; Z88.0 Allergy status to penicillin; Z88.2 Allergy status to sulfonamides; Z91.013 Allergy to seafood; Z88.5 Allergy status to narcotic agent; Z88.8 Allergy status to other drugs, medicaments and biological substances
CPT/HCPCS: 36415; 93005; 80053; 82150; 83690; 85025; 81001; 81025; 74176; 99284; 96374; J2270

== ENCOUNTER → 2023-07-05 | Outpatient (CLI) | payer BC, OTHER ==
[2023-07-05 15:45] LABS: ALT 15 U/L (8-44); AST 13 U/L (13-35); Albumin 3.9 g/dL (3.8-4.9); Alkaline Phosphatase 87 U/L (41-126); Blood Urea Nitrogen 6.3 mg/dL (9.0-27.0); Calcium 9.4 mg/dL (8.7-10.3); Carbon Dioxide 27.1 mmol/L (21.6-31.8); Chloride 104 mmol/L (96-109); Globulin 2.6 g/dL (1.6-3.3); Glucose 91 mg/dL (70-110); Potassium 4.2 mmol/L (3.5-5.5); Sodium 140 mmol/L (135-145); Total Bilirubin <0.2 mg/dL (0.3-1.2); Total Protein 6.5 g/dL (6.2-8.2)
[2023-07-05 15:47] LABS: HCT 37.9 % (37.2-46.3); HGB 11.6 g/dL (12.0-15.0); MCH 21.8 pg (27.0-32.0); MCHC 30.6 g/dL (32.0-37.0); MCV 71.2 FL (80.0-97.0); Mean Platelet Volume 11.1 FL (9.5-12.2); NRBC Per 100 WBC 0 X 10*3/uL (0.00-0.01); Platelet Count 348 X 10*3/uL (140-440); RBC 5.32 X 10*6/uL (4.10-5.20); RDW 18.1 % (11.5-14.5); WBC 9.04 X 10*3/uL (4.50-10.00)
[2023-07-05 16:16] LABS: Basophils # (A) 0.06 X 10*3/uL (0.00-0.10); Basophils % (A) 0.7 %; Eosinophils # (A) 0.16 X 10*3/uL (0.04-0.35); Eosinophils % (A) 1.8 %; Lymphocytes # (A) 2.42 X 10*3/uL (0.90-5.00); Lymphocytes % (A) 26.8 %; Microcytosis (M) 2+; Monocytes # (A) 0.85 X 10*3/uL (0.20-1.00); Monocytes % (A) 9.4 %; Neutrophils # (A) 5.53 X 10*3/uL (1.80-7.70); Neutrophils % (A) 61.1 %
[2023-07-06 02:38] LABS: Cryptosporidium Antigen Negative (Negative)
== END | disposition home or self-care (01) ==
LOC: LABMAIN 09:05
PROVIDERS: ATTEND Physician Assistant
DX: R19.7 Diarrhea, unspecified (principal)
CPT/HCPCS: 80053; 85025; 87045; 87046; 87324; 87328; 87329